=== PATIENT | male | born 1980 | race Caucasian/White ===

== ENCOUNTER 2020-02-15 17:09 | Emergency (ER) | payer MEDICARE, MEDICAID, SELFPAY ==
[2020-02-15 17:16] VITALS: BP 131/91; BP 136/94; PULSE 100; PULSE 93; RESP 16; TEMP 36.8; O2SAT 97; BMI 31.6
--- NOTE | 2020-02-15 17:18 | ED_ITS ---
HPI - Psych General Chief Complaint: ETOH/Substance Use Stated Complaint: anxiety Time Seen by Provider: 02/15/20 17:17 Source: patient and EMS Mode of arrival: EMS Limitations: no limitations History of Present Illness MD complaint: anxiety and alcohol abuse Onset (ago): week(s) (1) Duration: constant History of same: Yes Relieving factors: none Exacerbating factors: none Context: recent alcohol abuse and significant life stressor Associated psychiatric symptoms: depression Associated symptoms: denies other symptoms Treatments prior to arrival: none Related Data Home Medications Medication Instructions Recorded Confirmed buprenorphine-naloxone [Suboxone] 1 film BUCCAL DAILY 02/15/20 02/15/20 clonidine HCl 0.2 mg PO BID 02/15/20 02/15/20 gabapentin 600 mg PO TID 02/15/20 02/15/20 Allergies Allergy/AdvReac Type Severity Reaction Status Date / Time No Known Allergies Allergy Verified 02/15/20 17:20 [No Known Allergies*] Review of Systems Review of Systems: Constitutional : No Fever, No Chills ENT/Mouth : No Ear Pain, No Nasal Congestion, No sore throat Eyes: No Eye Pain, No Swelling, No Redness Cardiovascular : No Chest Pain, No SOB Respiratory : No Cough, No Sputum, No Dyspnea Gastrointestinal : No Nausea, No Vomiting, No Diarrhea, No Hematochezia, No Melena Genitourinary : No Dysuria, No Urinary Frequency, No Hematuria Musculoskeletal : No Myalgias Skin : No Skin Lesions, No rash Neuro : No Weakness, No Numbness, No Paresthesias, No Dizziness, No Headache Psych : positive Anxiety, positive Depression, no SI/HI Heme/Lymph: No Lymphadenopathy Endocrine : No Polyuria, No Polydipsia All other systems reviewed and are negative [facility] Past Medical History Attestation statement: The following information was validated with the patient. Medical History Alcohol abuse HTN (hypertension) Substance abuse Withdrawal seizures Social History Social History (Updated 02/15/20 @ 17:35 by Eileen Pepe DO) Alcohol intake: current Smoking Status: Current every day smoker Advance Directives: No Advance Directives Information Provided: Yes Physical Exam Vital Signs: Vital Signs: Last Vital Signs Temp 98.3 F 02/15/20 17:16 Pulse 100 02/15/20 17:16 Resp 16 02/15/20 17:16 BP 136/94 H 02/15/20 17:16 Pulse Ox 97 02/15/20 17:16 Body Mass Index 31.6 Appearance: Alert. Oriented X3. No acute distress. ETOH odor, slurred speech, mild anxiety Eyes: Pupils equal, round and reactive to light. ENT: Pharynx normal. Neck: Normal inspection. Neck supple. CVS: Normal heart rate and rhythm. Pulses normal. Respiratory: No respiratory distress. Breath sounds normal. Abdomen: Soft and nontender. Skin: Skin warm and dry. Normal skin color. Normal skin turgor. Extremities: No lower extremity edema. No calf ttp Neuro: Oriented X 3. No motor deficit. No sensory deficit. Course Course Course Narrative: has bed available for detox MDM - Psych MDM Narrative Medical decision making narrative: 39 yo male with hx of ETOH here with c/o wanting detox but also states that he could have a withdrawal seizure, initially reluctant to say what he needed help with - but now reports wants detox, will obtain labs, refer to recovery coaches, PO librium Discharge Plan Discharge Clinical Impression: Alcoholic intoxication Patient Disposition: Home, Self-Care Instructions: Abuse of Alcohol (ED) Additional Instructions: return to ED for any worsening symptoms or concerns Prescriptions: No Action gabapentin 600 mg Tablet 600 mg PO TID RF: 0 clonidine HCl 0.2 mg Tablet 0.2 mg PO BID RF: 0 buprenorphine-naloxone [Suboxone] 8-2 mg Film 1 film BUCCAL DAILY RF: 0 Referrals: Physician,Unknown [Primary Care Provider] - 2 days (as needed)
[2020-02-15] MEDS: chlordiazePOXIDE HCl 25 MG CAPSULE PO (17:29)
--- NOTE | 2020-02-15 18:02 | MHC.CARE ---
Addendum entered by Lisette Salazar LCSW 02/15/20 19:23: [facility] unable to accommodate an admission until 2am. [facility] was contacted, admission scheduled for 12am and phone intake was completed. Pt's father will roller picker pt from ED at 10pm. Original Note: Pt seeking detox. This database report writer contacted [facility] re: bed availability. Facility has an appropriate bed, pt directed to call and complete a phone intake. strength and conditioning coach assisting pt with this process.
[2020-02-15 18:25] LABS: PLT CLUMP 1; SCAN SMEAR FLAG 1
[2020-02-15 18:27] LABS: Basophils Percent Auto 0.4 % (0-2); Eosinophils Percent Auto 0.1 % (0-4); Hematocrit 50.4 % (42-52); Imm Gran Abs Auto 0.03 X10*3/uL (0.00-0.03); Imm Gran Pct Auto 0.3 % (0.0-0.4); Lymphocytes Absolute Auto 2.4 X10*3/uL (1.2-4.9); Lymphocytes Percent Auto 22.3 % (20-40); MANUAL DIFF FLAG NO; Mean Corpuscular HGB Conc 33.7 g/dl (31.0-36.0); Mean Corpuscular Hemoglobin 30.4 pg (27.0-33.0); Mean Corpuscular Volume 90.2 fL (80-98); Mean Platelet Volume 9.4 fL (9.4-12.4); Monocytes Percent Auto 9.5 % (2-11); Neutrophils Absolute Auto 7.3 X10*3/uL (2.0-8.3); Neutrophils Percent Auto 67.4 % (45-73); Red Blood Count 5.59 X10*6/uL (4.60-5.80); Red Cell Distribution Width 14.7 % (11.0-16.0); White Blood Count 10.9 X10*3/uL (4.8-10.8)
[2020-02-15 18:52] LABS: Ethanol 286 mg/dL
[2020-02-15 18:55] LABS: Anion Gap 19 (12-20); Blood Urea Nitrogen 9 mg/dL (9-16); Calcium 8.4 mg/dL (8.4-10.2); Carbon Dioxide 26 mmol/L (22-29); Chloride 103 mmol/L (96-108); Creatinine Clr Calc Pharmacy 162.9; Estimated Glomerular Filt Rate > 60; Glucose Random 99 mg/dL (60-115); Magnesium 2.1 mg/dL (1.6-2.6); Potassium 4.4 mmol/l (3.3-5.1); Sodium 144 mmol/L (135-145)
[2020-02-15 20:00] VITALS: BP 174/89; PULSE 97; RESP 18; TEMP 36.6; O2SAT 98
[2020-02-15 21:52] VITALS: BP 139/95; PULSE 94; RESP 18; TEMP 36.4; O2SAT 98
== END 2020-02-15 22:00 | disposition home or self-care (01) ==
PROVIDERS: Emergency Provider Emergency Medicine
DX: F10.129 Alcohol abuse with intoxication, unspecified (principal); Y90.9 Presence of alcohol in blood, level not specified; F33.1 Major depressive disorder, recurrent, moderate; F41.1 Generalized anxiety disorder; F43.0 Acute stress reaction; Z79.899 Other long term (current) drug therapy; F17.200 Nicotine dependence, unspecified, uncomplicated; Z71.6 Tobacco abuse counseling
CPT/HCPCS: 36415; 80048; 80320; 83735; 85025; 99284

== ENCOUNTER 2020-07-29 16:54 | Inpatient (IN) | payer MEDICARE, MEDICAID, SELFPAY ==
--- NOTE | ~2020-07-29 | XR_ITS ---
EXAMINATION: XR CHEST CLINICAL INFORMATION: Atrial fibrillation COMPARISON: Previous chest x-ray December 2018 TECHNIQUE: Frontal view of the chest was obtained. FINDINGS: The cardiac and mediastinal contours are stable. There are postsurgical changes to the left upper lobe. There are bullous changes seen in the right upper lobe. The lungs are clear. There is no pleural effusion or pneumothorax. There is ossification of the left coracoclavicular ligament likely related to old trauma. XR/XR chest 1V IMPRESSION: No evidence for acute disease in the chest.
[2020-07-29 17:04] VITALS: BP 139/90; BP 162/88; PULSE 106; PULSE 110; RESP 20; TEMP 35.8; O2SAT 94; O2SAT 96; BMI 34.2
--- NOTE | 2020-07-29 17:19 | ED.ALCOHOL ---
HPI - Alcohol General Chief Complaint: ETOH/Substance Use Stated Complaint: ETOH/psychiatric Time Seen by Provider: 07/29/20 17:05 Source: EMS Mode of arrival: EMS Limitations: other (Intoxicated) History of Present Illness HPI narrative: Patient comes to emergency room by ambulance. EMS reports that somebody called to nut picker the patient in a hotel. His room was full of Related Data Home Medications Medication Instructions Recorded Confirmed buprenorphine-naloxone [Suboxone] 1 film BUCCAL DAILY 02/15/20 02/15/20 clonidine HCl 0.2 mg PO BID 02/15/20 02/15/20 gabapentin 600 mg PO TID 02/15/20 02/15/20 Allergies Allergy/AdvReac Type Severity Reaction Status Date / Time No Known Allergies Allergy Verified 07/29/20 20:19 [No Known Allergies*] [facility] Past Medical History Medical History Alcohol abuse HTN (hypertension) Substance abuse Withdrawal seizures Social History Social History (Updated 02/15/20 @ 17:35 by Eileen Pepe DO) Alcohol intake: current Alcohol intake frequency: 3 or more drinks per day Alcohol type: hard liquor Smoking Status: Current every day smoker Use of substances other than those prescribed or required for medical reasons: Yes Substance Use Type: Former Substance User and Opiates Advance Directives: No Advance Directives Information Provided: Yes Physical Exam Vital Signs: Vital Signs: Last Vital Signs Temp 96.4 F L 07/29/20 17:04 Pulse 109 H 07/29/20 20:11 Resp 16 07/29/20 20:11 BP 184/90 H 07/29/20 20:11 Pulse Ox 96 07/29/20 20:11 Body Mass Index 34.2 Course Course Course Narrative: Patient is now more awake, states that he has been hearing voices telling him to drink more and kill himself. Behavioral health network consult pending Discharge Plan Discharge Prescriptions: No Action gabapentin 600 mg Tablet 600 mg PO TID RF: 0 clonidine HCl 0.2 mg Tablet 0.2 mg PO BID RF: 0 buprenorphine-naloxone [Suboxone] 8-2 mg Film 1 film BUCCAL DAILY RF: 0
--- NOTE | 2020-07-29 18:02 | MHC.RECOVSUP ---
Recovery Support note: Patient is a 39 year old Cameroonian speaking male who presented to [facility] via EMS due to withdrawal and being unable to care for self. This headline writer met with patient to discuss the circumstances that lead up to his ED visit. Patient was minimally engaged in consultation and provided short answers. Patient reports he was on Suboxone for several years and decided he wanted to get off of it. Patient reports he stopped taking it with no attempt to taper. Patient began to withdraw and started to drink alcohol to cope with the withdrawal symptoms. Patient reports he is here in the hospital because he is unable to handle the withdrawal symptoms. Patient reports he gets his Suboxone from [facility] and that he was on 16mg. Patient is open to receiving Suboxone to treat his withdrawal. Patient reports he does not have any more Suboxone at home. This headline writer asked patient if he would be willing to go to detox and patient stated he would only go to [facility]. [facility] reports they do have a male bed available as of 1800. Patient may be willing to discharge to the community if his withdrawal is managed. Patient is unable to provide specifics regarding what he feels would be best, patient states I need the hospital to help me but does not elaborate. Discussed case with patient's ED provider and CARE Team.
--- NOTE | 2020-07-29 18:48 | PC.NURSE ---
late entry for 1800. pt intoxicated, undressed and cleansed of urine while still in bed. able to follow commands and states needs but coordination is poor.
[2020-07-29 20:11] VITALS: BP 184/90; PULSE 109; RESP 16; O2SAT 96
--- NOTE | 2020-07-29 20:30 | PC.NURSE ---
At this time the patient reported that he is hearing voices to kill himself, patient reports that these are not new voices, but since taking the suboxone approx a week and a half ago because he wanted to stop taking it the voices tell him to drink more to kill himself. Patient also has not taken his clonidine or gabapentin, CIWA of 11, M is aware o
[2020-07-29 20:35] VITALS: BP 184/90; PULSE 109
[2020-07-29] MEDS: cloNIDine HCL 0.2 MG TABLET PO (20:35)
[2020-07-29] MEDS: LORazepam 1 MG TABLET 2 MG PO (20:35)
[2020-07-29 21:01] LABS: IDNOW Serial# 9DD0AD1C
[2020-07-29 21:05] LABS: COVID-19 Test Negative (Negative)
[2020-07-30] VITALS (26 sets, daily range): BP systolic 103–142; BP diastolic 56–83; PULSE 63–168; RESP 20–34; TEMP 36.6–37.2; O2SAT 92–98; BMI 38.1; BMI 38.0
[2020-07-30 00:01] LABS: Ethanol 318 mg/dL
[2020-07-30 01:24] LABS: Amphetamine Screen Urine Not Detected (Not Detect); Barbiturates, Urine Not Detected (Not Detect); Benzodiazepines Screen Urine Not Detected (Not Detect); Cannabinoid Screen Urine Not Detected (Not Detect); Cocaine Screen Urine Not Detected (Not Detect); Opiate Screen Urine Not Detected (Not Detect); Phencyclidine Screen Urine Not Detected (Not Detect)
[2020-07-30] MEDS: cloNIDine HCL 0.1 MG TABLET PO (02:10)
[2020-07-30] MEDS: chlordiazePOXIDE HCl 25 MG CAPSULE PO ×2 (04:18→07:49)
--- NOTE | 2020-07-30 07:07 | PC.NURSE ---
patient appears to be asleep at present patient appears in no distress, patient to be seen by [facility]N hopefully today. patients respirations are even and unlabored, sleeps in recliner.
[2020-07-30] MEDS: chlordiazePOXIDE HCl 25 MG CAPSULE 50 MG PO (09:44)
--- NOTE | 2020-07-30 10:44 | MHC.CARE ---
10:30 - Spoke with JOANIE regarding this pt. JOANIE advised the CARE team this morning that a clinician will be out to see this pt at 0745 this morning. A return call was placed at 10:30 regarding an ETA for a clinician as none have arrived yet. JOANIE advised CARE that they would be out some time after noon . Alignment Technician Harika was advised that CARE Team will be taking this case.
--- NOTE | 2020-07-30 10:47 | PC.NURSE ---
PT to be moved to main ED due to ETOH withdrawal symptoms. Report given to Tenzin KRISHNAMURTHY. Care team met with PT, plan for EATs Bedsearch.
[2020-07-30] MEDS: diphenhydrAMINE HCL 50 MG/ML VIAL IVPUSH ×2 (11:19→17:04)
[2020-07-30] MEDS: LORazepam 2 MG/ML VIAL IVPUSH ×2 (11:19→11:58)
[2020-07-30] MEDS: 0.9 % Sodium Chloride 1,000 ML 999 ML IVCONT ×2 (11:19)
--- NOTE | 2020-07-30 11:28 | MHC.RECOVSUP ---
? Reason for consult:Continuity of care o Current location: [address] o Identified substance use concern:ETOH - Withdrawal - Seeking ATS (detox) - Support ? Intervention: o Community resources provided o Harm reduction discussion ? Plan: o Follow up tomorrow o Patient awaiting crisis evaluation o Patient to follow up with [facility] after discharge ? Additional information:Pt. sleep. Pt. is a section 12.
--- NOTE | 2020-07-30 11:39 | PC.NURSE ---
medicated per emar, wctm for therapeutic effect.
--- NOTE | 2020-07-30 12:06 | ECG_ITS ---
Test Reason : ETOH Blood Pressure : / mmHG Vent. Rate : 163 BPM Atrial Rate : 159 BPM P-R Int : 000 ms QRS Dur : 088 ms QT Int : 284 ms P-R-T Axes : 000 041 037 degrees QTc Int : 467 ms Atrial fibrillation with rapid ventricular response Abnormal ECG When compared with ECG of 25-DEC-2018 21:20, Atrial fibrillation has replaced Sinus rhythm Referred By: Amarilys Pedraza Electronically Signed By:Scott Torres
[2020-07-30] MEDS: PHENobarbitaL sodium 130 MG/ML VIAL 320 MG IM (12:30)
[2020-07-30 12:32] LABS: Basophils Percent Auto 0.3 % (0-2); Eosinophils Percent Auto 0.3 % (0-4); MANUAL DIFF FLAG SCAN
[2020-07-30 12:34] LABS: Imm Gran Abs Auto 0.01 X10*3/uL (0.00-0.03); Imm Gran Pct Auto 0.2 % (0.0-0.4); Lymphocytes Absolute Auto 1.2 X10*3/uL (1.2-4.9); Lymphocytes Percent Auto 18.1 % (20-40); Mean Corpuscular HGB Conc 34.9 g/dl (31.0-36.0); Monocytes Absolute Auto 0.7 X10*3/uL (0.1-1.2); Monocytes Percent Auto 10.4 % (2-11); Neutrophils Absolute Auto 4.7 X10*3/uL (2.0-8.3); Neutrophils Percent Auto 70.7 % (45-73); Red Cell Distribution Width 14.4 % (11.0-16.0); White Blood Count 6.6 X10*3/uL (4.8-10.8)
[2020-07-30 12:36] LABS: Prothrombin Time 11.9 SEC (10.8-13.0)
[2020-07-30 12:38] LABS: Partial Thromboplastin Time 36.3 SEC (24.1-38.0)
[2020-07-30] MEDS: dilTIAZem HCL 50 MG/10 ML VIAL 10 MG IVPUSH ×4 (12:59→15:45)
[2020-07-30] MEDS: Magnesium Sulfate/H2O 2 GM/50 ML PIGGYBACK IV (13:00)
[2020-07-30 13:08] LABS: Platelet Count 79 X10*3/uL (160-400)
[2020-07-30 13:09] LABS: SLIDE REVIEW VERIFIED
[2020-07-30 13:25] LABS: Alanine Aminotransferase 100 U/L (0-40); Alkaline Phosphatase 145 U/L (39-117); Anion Gap 24 (12-20); Aspartate Amino Transferase 127 U/L (5-37); Bilirubin Total 1.3 mg/dL (0.0-1.0); Blood Urea Nitrogen 11 mg/dL (9-16); Calcium 9.2 mg/dL (8.4-10.2); Carbon Dioxide 21 mmol/L (22-29); Chloride 92 mmol/L (96-108); Creatinine Clr Calc Pharmacy 173.8; Estimated Glomerular Filt Rate > 60; Glucose Random 76 mg/dL (60-115); Magnesium 1.6 mg/dL (1.6-2.6); Potassium 3.3 mmol/L (3.3-5.1); Sodium 134 mmol/L (135-145)
[2020-07-30] MEDS: dilTIAZem HCL 125 MG in 0.9 % Sodium Chloride 100 ML 10 MG IVCONT (13:35)
--- NOTE | 2020-07-30 13:55 | PM.IMHP ---
History of Present Illness Date of Service: 07/30/20 Chief Complaint: hearing voices This is a 39 yo M with a PMH of alcohol abuse and dependence with prior alcohol withdrawal seizures who presents to the hospital by EMS for alcohol intoxication and auditory hallucinations. The patient was initially supposed to be a section 12 and was a bed search, but he began exhibiting symptoms of alcohol withdrawal and so he was transferred from the pod over to the main ED. The patient himself denies any current auditory hallucinations, but reports that he has been feeling depressed and has been drinking a half gallon of vodka daily for many days now. He reports that the voices told him to drink more alcohol so he could end his life. Upon arrival to the ED, he was hemodynmically stable but at some point this AM, he began exhibiting alcohol withdrawal symptoms and tachycardia. He was given multiple IV / oral benzodiazepines without much improvement and so the decision was made to start him on phenobarbital per protocol. He was found to be in A. Fib with RVR, with rates going up the 150-160s range. He was given IV cardizem without much improvement and subsequently started on IV cardizem wih rates slowly down to the 130s. Due to his severe alcohol withdrawal and A. Fib with RVR -- he will be admitted to the medical floor for further management. He will ultimately need CARE team / N re-eval once he is medically cleared. Review of Systems Review of Systems: General - reports alcohol withdrawal symptoms HEENT -denies blurred vision, denies headache, denies sore throat Cardiovascular - denies chest pain, reports palpitations Respiratory - denies shortness of breath, coughing, wheezing Gastrointestinal - denies abdominal pain, nausea, vomiting, diarrhea - denies flank pain, denies dysuria, denies frequency or urgency Musculoskeletal - denies back pain, denies hip pain, denies knee pain, denies shoulder pain Neurological - reports tremors Skin, denies any bruising or redness Psychiatric - Auditory hallucinations which have subsided at this time, reports depression, reports SI (intent with heavy alcohol use), reports tremors Endocrinology - denies intolerance to hot / cold temperatures [facility] Medical History Alcohol abuse HTN (hypertension) Substance abuse Withdrawal seizures Family History (Updated 05/10/21 @ 14:03 by Adama Springer MD) Other Alcoholism Social History (Updated 02/15/20 @ 17:35 by Eileen Pepe DO) Alcohol intake: current Alcohol intake frequency: 3 or more drinks per day Alcohol type: hard liquor Smoking Status: Current every day smoker Use of substances other than those prescribed or required for medical reasons: Yes Substance Use Type: Former Substance User and Opiates Advance Directives: No Advance Directives Information Provided: Yes Meds Allergies Allergy/AdvReac Type Severity Reaction Status Date / Time No Known Allergies Allergy Verified 07/29/20 20:19 [No Known Allergies*] Active Medications: Current Medications Generic Name Dose Route Start Last Admin Trade Name Freq PRN Reason Stop Dose Admin Chlordiazepoxide HCl 25 mg 07/30/20 07:32 07/30/20 07:49 Chlordiazepoxide Hcl 25 Mg Capsule PO 25 mg Q4H PRN Administration Alcohol Withdrawal Magnesium Sulfate 2 gm in 50 mls @ 25 mls/hr 07/30/20 12:50 07/30/20 13:00 IV 07/30/20 14:49 25 mls/hr ONCE ONE Administration Diltiazem HCl 125 mg/ Sodium 125 mls @ 0 mls/hr 07/30/20 13:00 07/30/20 13:35 Chloride IVCONT 10 mg/hr .Q0M ANNMARIE 10 mls/hr Administration Protocol Per Protocol Medication 1 each 07/31/20 09:00 No Benzodiazepines MISCELLANE DAILY [facility] Pharmacy Consult 1 each 07/30/20 12:06 Consult Rx Perform Med Rec MISCELLANE ONCE PRN Consult order Phenobarbital 60 mg 07/30/20 21:00 Phenobarbital 30 Mg Tablet PO 08/01/20 09:01 BID [facility] Protocol Phenobarbital 30 mg 08/01/20 21:00 Phenobarbital 30 Mg Tablet PO 08/03/20 09:01 BID [facility] Protocol Phenobarbital 30 mg 08/04/20 09:00 Phenobarbital 30 Mg Tablet PO 08/05/20 09:01 DAILY [facility] Protocol Phenobarbital Sodium 240 mg 07/30/20 15:30 Phenobarbital Sodium 130 Mg/Ml Vial IM 07/30/20 18:31 Q3H [facility] Protocol Home Medications Medication Instructions Recorded Confirmed Last Taken Type buprenorphine-naloxone [Suboxone] 2 film BUCCAL DAILY 02/15/20 07/30/20 Unknown History clonidine HCl 0.2 mg PO BID 02/15/20 07/30/20 07/18/20 10:00 History gabapentin 600 mg PO TID 02/15/20 07/30/20 07/18/20 History atorvastatin 20 mg PO BEDTIME 07/30/20 07/30/20 Unknown History bupropion HCl 300 mg PO QAM 07/30/20 07/30/20 Unknown History cholecalciferol (vitamin D3) 50 mcg PO DAILY 07/30/20 07/30/20 Unknown History metoprolol succinate 25 mg PO DAILY 07/30/20 07/30/20 Unknown History omeprazole 20 mg PO DAILY PRN 07/30/20 07/30/20 Unknown History sertraline [Zoloft] 150 mg PO DAILY 07/30/20 07/30/20 Unknown History vitamin B complex 1 tab PO DAILY 07/30/20 07/30/20 Unknown History Physical Exam Vital Signs and Narrative: Vital Signs: Last Vital Signs Temp 98.3 F 07/30/20 09:41 Pulse 168 H 07/30/20 13:38 Resp 28 H 07/30/20 13:38 BP 103/60 07/30/20 13:38 Pulse Ox 98 07/30/20 13:38 Body Mass Index 34.2 Const: Other: Constitutional - in distress, appears to be withdrawing, some what unkempt Eyes - PERRLA, EOMI Cardiovascular - IRR, tachycardic to the 150-160s range Respiratory - diminished, mild respiratory distress, tachypnea up to mid 20s Gastrointestinal - NT / ND; +BS; No rebound or guarding - No CVA tenderness Extremities - no calf tenderness bilaterally, no swelling Musculoskeletal - Normal inspection, normal ROM Skin - Warm/Dry Neurological - Alert & oriented x3, No focal deficit; +tremors Psychological - Appropriate affect Results Labs CBC and Chem 7: 07/30/20 12:21 07/30/20 12:21 Labs: Laboratory Results - last 24 hr 07/29/20 07/29/20 07/30/20 20:46 23:34 01:06 MCV MCH MCHC RDW Plt Count MPV Immature Gran % (Auto) Neut % (Auto) Lymph % (Auto) [place] % (Auto) Eos % (Auto) Baso % (Auto) Lymph # (Auto) [place] # (Auto) Eos # (Auto) Baso # (Auto) Abs Immat Gran (auto) Absolute Neuts (auto) Absolute Nucleated RBC Nucleated RBC % (auto) Smear Tech's Comments Hold Purple Top PT INR APTT Anion Gap Estim Creat Clear Calc Estimated GFR Random Glucose Calcium Magnesium Total Bilirubin AST ALT Alkaline Phosphatase Total Protein Albumin Urine Opiates Screen Not Detected Ur Barbiturates Screen Not Detected Ur Phencyclidine Scrn Not Detected Ur Amphetamines Screen Not Detected U Benzodiazepines Scrn Not Detected Urine Cocaine Screen Not Detected U Marijuana (THC) Screen Not Detected Ethyl Alcohol 318 H* COVID-19 (CHARAN) Negative COVID-Zoe Majeste See Note 07/30/20 07/30/20 07/30/20 12:21 12:21 12:21 MCV 86.0 MCH 30.0 MCHC 34.9 RDW 14.4 Plt Count 79 L MPV 10.0 Immature Gran % (Auto) 0.2 Neut % (Auto) 70.7 Lymph % (Auto) 18.1 L [place] % (Auto) 10.4 Eos % (Auto) 0.3 Baso % (Auto) 0.3 Lymph # (Auto) 1.2 [place] # (Auto) 0.7 Eos # (Auto) 0.0 Baso # (Auto) 0.0 Abs Immat Gran (auto) 0.01 Absolute Neuts (auto) 4.7 Absolute Nucleated RBC 0.000 Nucleated RBC % (auto) 0.0 Smear Tech's Comments VERIFIED Hold Purple Top SEE NOTE PT 11.9 INR 1.0 APTT 36.3 Anion Gap Estim Creat Clear Calc Estimated GFR Random Glucose Calcium Magnesium Total Bilirubin AST ALT Alkaline Phosphatase Total Protein Albumin Urine Opiates Screen Ur Barbiturates Screen Ur Phencyclidine Scrn Ur Amphetamines Screen U Benzodiazepines Scrn Urine Cocaine Screen U Marijuana (THC) Screen Ethyl Alcohol COVID-19 (CHARAN) COVID-Zoe Majeste 07/30/20 12:21 MCV MCH MCHC RDW Plt Count MPV Immature Gran % (Auto) Neut % (Auto) Lymph % (Auto) [place] % (Auto) Eos % (Auto) Baso % (Auto) Lymph # (Auto) [place] # (Auto) Eos # (Auto) Baso # (Auto) Abs Immat Gran (auto) Absolute Neuts (auto) Absolute Nucleated RBC Nucleated RBC % (auto) Smear Tech's Comments Hold Purple Top PT INR APTT Anion Gap 24 H Estim Creat Clear Calc 173.8 Estimated GFR > 60 Random Glucose 76 Calcium 9.2 D Magnesium 1.6 Total Bilirubin 1.3 H AST 127 H ALT 100 H Alkaline Phosphatase 145 H Total Protein 7.0 Albumin 4.0 Urine Opiates Screen Ur Barbiturates Screen Ur Phencyclidine Scrn Ur Amphetamines Screen U Benzodiazepines Scrn Urine Cocaine Screen U Marijuana (THC) Screen Ethyl Alcohol COVID-19 (CHARAN) COVID-19 Clin Com Assessment and Plan (1) Alcohol withdrawal syndrome: Status: Acute This is a 39 yo M with a PMH of alcohol abuse and dependence, with prior withdrawal seizures who presented to the hospital with depression and complaints of auditory hallucinations telling him to harm himself by drinking excessive alcohol. He was initially a section 12 and psych bed search, but he began exhibiting signs and symptoms of alcohol withdrawal and as such will be medically admitted for acute alcohol withdrawal. 1. Acute Alcohol Withdrawal presented with a EtOH level >300 now in withdrawal -- did not responded to IV ativan and oral librium, started on phenobarb per protocol. Continue per protocol, may require further doses monitor and replete electrolytes as necessary 2. A. Fib with RVR likely secondary to alcohol withdrawal does not appear to be in HF clinically at this time will check a chest XR and BNP continue cardizem gtt per protocol may need echo and cardiology evaluation 3. Elevated LFTs due to alcohol abuse monitor alcohol cessation as been strongly encouraged 4. Auditory hallucinations, SI reports none at this time 1:1 / SI precautions will need BHN re-evaluation 5. Thrombocytoepnia due to alcohol intake monitor, no signs of bleeding at this time Full Code DVT pptx, mechanical due to thrombocytopenia
--- NOTE | 2020-07-30 13:59 | PC.NURSE ---
Pt incont of urine, heavy perspiration- bedding and clothing changed. Pt HR sustaining in 130s-155s.Hsopitalist at bedside, both and Bunny Panda aware of pts vs. pending admissiob
[2020-07-30 14:49] LABS: B Type Natriuretic Peptide 91 pg/mL (<100)
[2020-07-30] MEDS: PHENobarbitaL sodium 130 MG/ML VIAL 240 MG IM (15:35)
[2020-07-30] MEDS: Metoprolol Tartrate 5 MG/5 ML VIAL 2.5 MG IVPUSH (15:58)
[2020-07-30] MEDS: Metoprolol Tartrate 5 MG/5 ML VIAL IVPUSH (16:42)
--- NOTE | 2020-07-30 17:05 | PC.NURSE ---
ATTEMPTS AT CONTROLLING PTS HR HAVE BEEN CHALLENGING, PT HAS HAD MULTIPLE ROUNDS OF CARDIZEM BOLUS, ON HIGHEST TITRATION OF CARDIZEM DRIP. PRESSURES REMAIN STABLE, PT HR HAS NOT GONE BELOW 120 BPM THROUGHOUT DAY. PT HAS HAD INCREASED RESTLESSNESS THROUGHOUT AFTERNOON, SPEECH IS BECOMING MORE JUMBLED. PT IS HAVING VERY SHORT PERIODS OF REST, THEN APPEARING AGITATED AND RESTLESS. PT HAD ONE EPISODE OF ATTEMPTING TO AMBULATE W/O ASSISTANCE, APPEARS TO HAVE RIPPED OUT 1/2 IVS, BLEEDING CONTROLLED. REDIRECTED BACK TO BED, ED PROVIDER AND HOSPITALIST AT BEDSIDE. PLAN TO GET PTS HR AND BEHAVIORS UNDER CONTROL. ICU AWARE OF PT STATUS, HOSPITALIST TEAM WILL COME TO [facility] PRIOR TO 1900 TO ASSESS APPROPRIATENESS FOR ROUTINE INPT ADMISSION. WCTM.
--- NOTE | 2020-07-30 19:27 | W.PM.CCCN ---
History of Present Illness Data of Consult Service Date: 07/30/20 Primary Care Provider: Unknown Physician HPI Reason for consult: ETOH withdrawal This is a 39 year old male with a past medical history of alcohol withdrawal seizures, polysubstance abuse, and hypertension presented to the ED via EMS for alcohol intoxication and auditory hallucinations. The patient was initially supposed to be a section 12 and was a bed search, but he began exhibiting symptoms of alcohol withdrawal. He was initially hemodynamically stable, but he began exhibiting alcohol withdrawal symptoms and tachycardia. He was given multiple IV / oral benzodiazepines without much improvement and so the decision was made to start him on phenobarbital per protocol. He was found to be in A. Fib with RVR, with rates going up the 150-160s range. He was given IV cardizem without much improvement and subsequently started on IV cardizem wih rates slowly down to the 130s. He continue to require multiple medications for alcohol withdrawal symptoms. Subsequently requiring Precedex drip and admission into the ICU. Review of Systems Review of Systems: Unable to perform, patient is confused Neurologic: Reports confusion (Periods of confusion) Psychiatric: Psychiatric: Reports confusion (Periods of confusion) [facility] Past Medical History Medical History Alcohol abuse HTN (hypertension) Substance abuse Withdrawal seizures Family History Family History (Updated 07/30/20 @ 14:03 by Adama Springer MD) Other Alcoholism Social History Social History (Updated 02/15/20 @ 17:35 by Eileen Pepe DO) Alcohol intake: current Alcohol intake frequency: 3 or more drinks per day Alcohol type: hard liquor Smoking Status: Current every day smoker Use of substances other than those prescribed or required for medical reasons: Yes Substance Use Type: Former Substance User and Opiates Advance Directives: No Advance Directives Information Provided: Yes Healthcare Proxy: No Guardian: No Meds Allergies Allergy/AdvReac Type Severity Reaction Status Date / Time No Known Allergies Allergy Verified 07/29/20 20:19 [No Known Allergies*] Active Medications: Current Medications Generic Name Dose Route Start Last Admin Trade Name Freq PRN Reason Stop Dose Admin Diltiazem HCl 125 mg/ Sodium 125 mls @ 0 mls/hr 07/30/20 13:00 07/30/20 15:25 Chloride IVCONT 15 mg/hr .Q0M ANNMARIE 15 mls/hr Titration Protocol Per Protocol Dexmedetomidine HCl 400 mcg in 100 mls @ 0 mls/hr 07/30/20 18:45 Precedex IVCONT .Q0M [facility] Protocol Per Protocol Medication 1 each 07/31/20 09:00 No Benzodiazepines MISCELLANE DAILY [facility] Pharmacy Consult 1 each 07/30/20 12:06 Consult Rx Perform Med Rec MISCELLANE ONCE PRN Consult order Phenobarbital 60 mg 07/30/20 21:00 Phenobarbital 30 Mg Tablet PO 08/01/20 09:01 BID [facility] Protocol Phenobarbital 30 mg 08/01/20 21:00 Phenobarbital 30 Mg Tablet PO 08/03/20 09:01 BID [facility] Protocol Phenobarbital 30 mg 08/04/20 09:00 Phenobarbital 30 Mg Tablet PO 08/05/20 09:01 DAILY [facility] Protocol Home Medications Medication Instructions Recorded Confirmed Last Taken Type buprenorphine-naloxone [Suboxone] 2 film BUCCAL DAILY 02/15/20 07/30/20 Unknown History clonidine HCl 0.2 mg PO BID 02/15/20 07/30/20 07/18/20 10:00 History gabapentin 600 mg PO TID 02/15/20 07/30/20 07/18/20 History atorvastatin 20 mg PO BEDTIME 07/30/20 07/30/20 Unknown History bupropion HCl 300 mg PO QAM 07/30/20 07/30/20 Unknown History cholecalciferol (vitamin D3) 50 mcg PO DAILY 07/30/20 07/30/20 Unknown History metoprolol succinate 25 mg PO DAILY 07/30/20 07/30/20 Unknown History omeprazole 20 mg PO DAILY PRN 07/30/20 07/30/20 Unknown History sertraline [Zoloft] 150 mg PO DAILY 07/30/20 07/30/20 Unknown History vitamin B complex 1 tab PO DAILY 07/30/20 07/30/20 Unknown History Physical Exam Vital Signs: Vital Signs: Last Vital Signs Temp 98.1 F 07/30/20 17:43 Pulse 129 H 07/30/20 17:43 Resp 21 H 07/30/20 17:43 BP 142/64 H 07/30/20 17:43 Pulse Ox 93 07/30/20 17:43 Body Mass Index 34.2 Const: General: no acute distress, anxious, confusion (Periods of confusion) and diaphoretic Orientation/consciousness: patient oriented x3 and confusion (Periods of confusion) Eyes: General: appearance normal, both eyes and all related structures Neck: Neck: Yes supple and Yes no JVD Resp: Effort & Inspection: normal respiratory effort and tachypneic Auscultation: clear to auscultation bilaterally Cardio: Other: Atrial fibrillation Rate: tachycardic Heart sounds: S1 normal heart sound present and S2 normal heart sound present Peripheral pulses: Peripheral pulses 2+ throughout GI: Palpation (GI): Soft to palpation Skin: General skin exam: turgor normal Rashes: no rashes Neuro: General: patient oriented x3 and confusion (Periods of confusion) Extrem: General: Yes capillary refill normal Results Labs CBC & Chem 7: 07/30/20 12:21 07/30/20 12:21 Labs: Short CBC 07/30/20 Range/Units 12:21 WBC 6.6 (4.8-10.8) X10*3/uL Hgb 15.0 (14.0-18.0) g/dl Hct 43.0 (42-52) % Plt Count 79 L (160-400) X10*3/uL BMP 07/30/20 12:21 Sodium 134 L Potassium 3.3 Chloride 92 L Carbon Dioxide 21 L BUN 11 Creatinine 0.76 Calcium 9.2 D Liver Function 07/30/20 Range/Units 12:21 Total Bilirubin 1.3 H (0.0-1.0) mg/dL AST 127 H (5-37) U/L ALT 100 H (0-40) U/L Alkaline Phosphatase 145 H (39-117) U/L Albumin 4.0 (3.5-5.0) g/dL Assessment and Plan (1) Alcoholic intoxication: Status: Acute Plan: Neuro: Hallucinations: Auditory hallucinations/SI: 1:1 / SI precautions will need BHN re-evaluation presented with a EtOH level >300, did not responded to IV ativan, oral librium, and phenobarb per protocol. Will now start on precedex drip. wean off prexedex drip when appropiate Cardiac: New onset AFib RVR: Likely from ETOH withdrawal. Cardiology consult in the morning/echo. Wean off Cardizem drip as tolerated Tachycardia: Likely from ETOH withdrawal. Pulmonary: No acute issues Renal: No acute issues Endo: No acute issues. GI: Elevated LFTs: due to alcohol abuse. Cont monitor lfts Heme/Onc: Thrombocytoepnia due to alcohol intake monitor, no signs of bleeding at this time Psych: SI: Denies SI at time of assesment. Cont to be 1:1. Needs CARE team / BHN re-eval once he is medically cleared. Miscellaneous: Prophylaxis: mechanical due to thrombocytopenia Critical care time: x 60 min CODE: Full code (2) Alcohol withdrawal syndrome: Status: Acute (3) Afib: Status: Acute (4) Elevated LFTs: Status: Acute
--- NOTE | 2020-07-30 19:31 | PC.NURSE ---
This RN contacted pharmacy regarding Precedex drip. Medication unavailable in pyxis. Medication to be administered/initiated in ED prior to transfer to ICU. Sitter remains at bedside.
[2020-07-30] MEDS: dexmedeTOMIDidine HCL/NS 400 MCG/100 ML INFUS..BTL 29.48 MCG IVCONT (19:42)
[2020-07-30] MEDS: dexmedeTOMIDidine HCL/NS 400 MCG/100 ML INFUS..BTL 49.2 MCG IVCONT ×2 (21:13→23:25)
[2020-07-30] MEDS: Lactated Ringers 1,000 ML 125 ML IVCONT (21:28)
--- NOTE | 2020-07-30 21:39 | PC.NURSE ---
Addendum entered by Huber Morton RN 07/30/20 22:56: Unable to assess CIWA r/t patient unable to answer questions - sedated. Wakeful periods, startles, opens eyes, makes eye contact, but relaxes and falls back asleep without issue. Addendum entered by Huber Morton RN 07/30/20 22:30: Labs drawn & fluids changed in response. Kphos ordered as well. Patient intermit restless - able to be redirected at this time. HR 60's, AFIB still. Original Note: Admitted patient to ICU room 252 @ approx 2100. Patient arousable, but not making sense, garbled speech, mumbling when responding. Following simple directions. HR down to high 50's, low 60's, afib, titrated cardizem drip off - Karyn KNITTING MACHINE OPERATOR HELPER at bedside - aware of titrations. Patient asleep, snoring, applied sequentials for DVT prophylaxis, also applied EtCO2 monitoring via nasal cannula (2 liters applied) r/t mouth breathing and sedated w/ precedex. Seizure precautions put in place - padded bedrails. Sitter at bedside for safety and SI precautions.
[2020-07-30 21:57] LABS: Blood Urea Nitrogen 11 mg/dL (9-16); Creatinine Clr Calc Pharmacy 185.6; Estimated Glomerular Filt Rate > 60; Glucose Random 99 mg/dL (60-115)
[2020-07-30 22:10] LABS: Anion Gap 18 (12-20); Calcium 8.3 mg/dL (8.4-10.2); Carbon Dioxide 23 mmol/L (22-29); Chloride 95 mmol/L (96-108); Magnesium 1.9 mg/dL (1.6-2.6); Phosphorus 1.6 mg/dL (2.7-4.5); Potassium 3.2 mmol/L (3.3-5.1); Sodium 133 mmol/L (135-145)
[2020-07-30] MEDS: 0.9 % Sodium Chloride 1,000 ML 100 ML IVCONT (22:26)
[2020-07-30] MEDS: Potassium Phosphate 30 MMOL in 0.9 % Sodium Chloride 500 ML 85 MMOL IV (22:38)
[2020-07-31] VITALS (28 sets, daily range): BP systolic 126–184; BP diastolic 79–107; PULSE 60–86; RESP 13–35; TEMP 36.2–36.7; O2SAT 92–96
[2020-07-31] MEDS: dexmedeTOMIDidine HCL/NS 400 MCG/100 ML INFUS..BTL 49.2 MCG IVCONT ×5 (01:25→22:04)
--- NOTE | 2020-07-31 01:40 | PC.NURSE ---
CARE ASSUMED 23;15...PRECEDEX 1.5 MCG/KG/HR (49.2 CC/HR)...SEDATE...INTERMITTANTLY AWAKE/RESTLESS...WEAKLY BLANKENSHIP..MUMBLES INCOHERANTLY..DOES NOT FOLLOW COMMANDS....NS 0.9% 100 CC/HR...K-PO4 INFUSING...BP STABLE...ATRIAL FIB HR 60'S-70'S...CARDIZEM DRIP REMAINS OFF...HNV SINCE ARRIVAL/ADMIT TO ICU...BLADDER SCANNED 202ml...ICU PROVIDER PRESENT AND AWARE...[place] CATHETER APPLIED...TO MONITOR RESPONSE...AM LAB-WORK ORDERED...1:1 SITTER AT BEDSIDE
[2020-07-31 05:28] LABS: Basophils Percent Auto 0.2 % (0-2); Eosinophils Absolute Auto 0.1 X10*3/uL (0.0-0.4); Hemoglobin 13.2 g/dl (14.0-18.0); PLT CLUMP 1; SCAN SMEAR FLAG 1
[2020-07-31 05:29] LABS: VBG Base Excess 1.4 mmol/L; VBG HCO3 22 mmol/L (22-26); VBG pCO2 27 mmHg; VBG pH 7.53 (7.32-7.43); VBG pO2 77 mmHg
[2020-07-31 05:30] LABS: Hematocrit 37.5 % (42-52); Imm Gran Abs Auto 0.01 X10*3/uL (0.00-0.03); Imm Gran Pct Auto 0.2 % (0.0-0.4); Lymphocytes Absolute Auto 1.4 X10*3/uL (1.2-4.9); Lymphocytes Percent Auto 27.6 % (20-40); Mean Corpuscular HGB Conc 35.2 g/dl (31.0-36.0); Mean Corpuscular Hemoglobin 30.3 pg (27.0-33.0); Mean Corpuscular Volume 86.2 fL (80-98); Mean Platelet Volume 10.1 fL (9.4-12.4); Monocytes Absolute Auto 0.6 X10*3/uL (0.1-1.2); Monocytes Percent Auto 12.9 % (2-11); Neutrophils Absolute Auto 2.8 X10*3/uL (2.0-8.3); Neutrophils Percent Auto 57.1 % (45-73); Platelet Count 51 X10*3/uL (160-400); Red Blood Count 4.35 X10*6/uL (4.60-5.80); Red Cell Distribution Width 14.3 % (11.0-16.0)
--- NOTE | 2020-07-31 05:30 | PC.NURSE ---
PRECIDEX MAINTAINED 1.5 MCG/KG/HR OVERNIGHT...PERIODS OF MORE WAKEFULNESS---CONVERSES BUT REMAINS DISORIENTED---TAKING FEW SIPS H20/ICE CHIPS W/O DIFFICULTY....HNV OVERNIGHT...BLADDER SCANNED NOW FOR 617ml...DOZING...AWAKENED...INSTRUCTED OF NECESSITY TO VOID--POSSIBLE NEED FOR CATHETERIZATION IF UNABLE--STATED I'LL FUCKING DO IT MYSELF--LEAVE ME ALONE! ....VOIDED 625ml YELLOW URINE VIA [place] CATHETER...AM LAB-WORK DRAWN BY ASHLY...ICU CREDIT CLERK PRESENT AND AWARE
[2020-07-31 05:36] LABS: MANUAL DIFF FLAG NO
[2020-07-31 05:42] LABS: Ammonia 54 umol/L (13-55)
[2020-07-31 05:53] LABS: Alanine Aminotransferase 68 U/L (0-40); Albumin Level 3.4 g/dL (3.5-5.0); Alkaline Phosphatase 113 U/L (39-117); Anion Gap 20 (12-20); Aspartate Amino Transferase 77 U/L (5-37); Bilirubin Total 1.1 mg/dL (0.0-1.0); Blood Urea Nitrogen 10 mg/dL (9-16); Calcium 8.4 mg/dL (8.4-10.2); Carbon Dioxide 20 mmol/L (22-29); Chloride 99 mmol/L (96-108); Creatinine Clr Calc Pharmacy 196.1; Estimated Glomerular Filt Rate > 60; Glucose Random 125 mg/dL (60-115); Magnesium 1.9 mg/dL (1.6-2.6); Phosphorus 3.5 mg/dL (2.7-4.5); Potassium 3.6 mmol/L (3.3-5.1); Sodium 135 mmol/L (135-145)
[2020-07-31 05:54] LABS: Venous Blood Gas Refer to POC result
[2020-07-31] MEDS: 0.9 % Sodium Chloride 1,000 ML 100 ML IVCONT (07:12)
[2020-07-31] MEDS: dexmedeTOMIDidine HCL/NS 400 MCG/100 ML INFUS..BTL 19.68 MCG IVCONT ×2 (10:26→15:24)
--- NOTE | 2020-07-31 10:57 | MHC.CM.PN ---
at this time pt is in the icu on continuous IV sedation. hence, details of his life at home are not available at this time and developing a dc plan should be deferred to a future time. pt would however benefit from a bhn and care team consult when the time is appropriate. pt's emr shows that he has family that lives in the area this may be helpful in a dc plan and transportation at dc. dc plan is uncertain at this time. cm to cont. to follow.
--- NOTE | 2020-07-31 12:29 | MHC.CARE ---
CARE team in contact with ICU regards pts medical status. Pt is currently on IV sedation and being monitored. Pt has a 1:[address] due to behavioral health concerns upon initial presentation to the ED yesterday and crisis assessment completed yesterday as well. Based on current status pt cannot be further assessed. CARE team can be consulted as needed.
--- NOTE | 2020-07-31 12:54 | PM.CCPN ---
Subjective Subjective Date of Service: 07/31/20 Interval History: 39-year-old gentleman with underlying history of alcohol abuse with prior alcohol withdrawal seizures, polysubstance abuse, hypertension admitted on 07/30/2020 initially with alcohol intoxication further complicated by delirium tremens requiring initiation of sedative drips and transferred to intensive care unit. No events overnight. Physical Exam Vital Signs: Vital Signs: Last Vital Signs Temp 97.2 F 07/31/20 08:00 Pulse 77 07/31/20 11:00 Resp 17 07/31/20 11:00 BP 134/79 07/31/20 11:00 Pulse Ox 94 07/31/20 11:00 Body Mass Index 38.0 Const: General: no acute distress and lethargic (Arousable) Nutritional Appearance: obese Orientation/consciousness: lethargic (Arousable) Eyes: Sclerae: sclerae normal EOM: EOMs intact bilaterally Neck: Neck: Yes no lymphadenopathy, Yes trachea midline and Yes supple Resp: Effort & Inspection: normal respiratory effort and no respiratory distress Auscultation: clear to auscultation bilaterally Cardio: Rate: regular rate Rhythm: regular rhythm Heart sounds: no gallops, no murmurs and no rubs GI: Palpation (GI): Soft to palpation and Other GI palpation findings present ( Nontender) Auscultation: normal bowel sounds Extrem: General: Yes no pedal edema, No clubbing and No cyanosis Objective Data Labs CBC & Chem 7: 07/31/20 05:20 07/31/20 05:20 Labs: Laboratory Results - last 24 hr 07/30/20 07/30/20 07/30/20 12:21 12:21 12:21 WBC RBC Hgb Hct MCV MCH MCHC RDW Plt Count 79 L MPV 10.0 Immature Gran % (Auto) Neut % (Auto) Lymph % (Auto) [place] % (Auto) Eos % (Auto) Baso % (Auto) Lymph # (Auto) [place] # (Auto) Eos # (Auto) Baso # (Auto) Abs Immat Gran (auto) Absolute Neuts (auto) Absolute Nucleated RBC Nucleated RBC % (auto) Smear Tech's Comments VERIFIED VBG pH VBG pCO2 VBG pO2 VBG HCO3 VBG O2 Saturation VBG Base Excess Sodium 134 L Potassium 3.3 Chloride 92 L Carbon Dioxide 21 L Anion Gap 24 H BUN 11 Creatinine 0.76 Estim Creat Clear Calc 173.8 Estimated GFR > 60 Random Glucose 76 Calcium 9.2 D Phosphorus Magnesium 1.6 Total Bilirubin 1.3 H AST 127 H ALT 100 H Alkaline Phosphatase 145 H Ammonia B-Natriuretic Peptide 91 Total Protein 7.0 Albumin 4.0 07/30/20 07/31/20 07/31/20 21:21 05:20 05:20 WBC 5.0 RBC 4.35 L Hgb 13.2 L Hct 37.5 L MCV 86.2 MCH 30.3 MCHC 35.2 RDW 14.3 Plt Count 51 L D MPV 10.1 Immature Gran % (Auto) 0.2 Neut % (Auto) 57.1 Lymph % (Auto) 27.6 [place] % (Auto) 12.9 H Eos % (Auto) 2.0 Baso % (Auto) 0.2 Lymph # (Auto) 1.4 [place] # (Auto) 0.6 Eos # (Auto) 0.1 Baso # (Auto) 0.0 Abs Immat Gran (auto) 0.01 Absolute Neuts (auto) 2.8 Absolute Nucleated RBC 0.000 Nucleated RBC % (auto) 0.0 Smear Tech's Comments VBG pH VBG pCO2 VBG pO2 VBG HCO3 VBG O2 Saturation VBG Base Excess Sodium 133 L 135 Potassium 3.2 L 3.6 Chloride 95 L 99 Carbon Dioxide 23 20 L Anion Gap 18 20 BUN 11 10 Creatinine 0.75 0.71 Estim Creat Clear Calc 185.6 196.1 Estimated GFR > 60 > 60 Random Glucose 99 125 H Calcium 8.3 L D 8.4 Phosphorus 1.6 L 3.5 Magnesium 1.9 1.9 Total Bilirubin 1.1 H AST 77 H ALT 68 H Alkaline Phosphatase 113 D Ammonia B-Natriuretic Peptide Total Protein 6.0 L Albumin 3.4 L 07/31/20 07/31/20 05:20 05:21 WBC RBC Hgb Hct MCV MCH MCHC RDW Plt Count MPV Immature Gran % (Auto) Neut % (Auto) Lymph % (Auto) [place] % (Auto) Eos % (Auto) Baso % (Auto) Lymph # (Auto) [place] # (Auto) Eos # (Auto) Baso # (Auto) Abs Immat Gran (auto) Absolute Neuts (auto) Absolute Nucleated RBC Nucleated RBC % (auto) Smear Tech's Comments VBG pH 7.53 H VBG pCO2 27 VBG pO2 77 VBG HCO3 22 VBG O2 Saturation 96.0 VBG Base Excess 1.4 Sodium Potassium Chloride Carbon Dioxide Anion Gap BUN Creatinine Estim Creat Clear Calc Estimated GFR Random Glucose Calcium Phosphorus Magnesium Total Bilirubin AST ALT Alkaline Phosphatase Ammonia 54 B-Natriuretic Peptide Total Protein Albumin Progress Note: A&P Assessment and plan (1) Delirium tremens: Status: Acute Assessment and Plan: Assessment: 39-year-old gentleman admitted with delirium tremens now requiring sedative drips. Plan: Neuro: Delirium tremens, continue to titrate off sedative drips as tolerated. Cardiac: No acute issues. Pulmonary: No acute issues. Renal: No acute issues. Endo: No acute issues. GI: No acute issues. ID: No acute issues Heme/Onc: No acute issues. Psych: No acute issues. Miscellaneous: No acute issues. Prophylaxis: Pneumatic compression Diet: Nothing by mouth (2) Hypertension: Status: Acute
--- NOTE | 2020-07-31 13:30 | PC.NURSE ---
Pt with 1:1 sitter at bedside, oriented x3 but vague. States still having suicidal thoughts, no plan. CIWA 10,12 respectively. Pt less roughly 44hrs since last drink of 1/2 gal. vodka. Pt was arousable to shaking at start of shift with precedex running at 1.5mcg/kg/hr. Afib 55-80 with R-R up to 3.2 sec at times, titrated precedex down to 0.6mcg/kg/hr. Pt more alert, spontaneously rouses, whene sleeping, wakens to voice. Mild/mod tremors to arms, photosensitivity, denies tactile/visual/auditiory hallucinations. Headache 07/30 to 05/30 MD aware, no analgesia at this time. pt denies chest pain /sob. [place] cath draining urine. Incontinent of stool x2 this shift.
--- NOTE | 2020-07-31 16:31 | MHC.CARE ---
CARE Team has discontinued assessment process at this time. Once medically cleared, BHN should be consulted for crisis assessment. If BHN can not respond, please re-consult CARE Team for evaluation.
[2020-07-31] MEDS: ondansetron HCL 4 MG/2 ML VIAL IVPUSH ×2 (18:27→22:01)
[2020-07-31] MEDS: dexmedeTOMIDidine HCL/NS 400 MCG/100 ML INFUS..BTL 32.8 MCG IVCONT (18:58)
[2020-08-01] VITALS (25 sets, daily range): BP systolic 116–171; BP diastolic 59–108; PULSE 66–140; RESP 14–32; TEMP 36.1–36.9; O2SAT 91–98
[2020-08-01] MEDS: dexmedeTOMIDidine HCL/NS 400 MCG/100 ML INFUS..BTL 49.2 MCG IVCONT ×4 (00:12→06:20)
[2020-08-01] MEDS: PHENobarbitaL 30 MG TABLET PO ×2 (05:16→20:27)
[2020-08-01 05:29] LABS: VBG HCO3 25 mmol/L (22-26); VBG pCO2 30 mmHg; VBG pH 7.52 (7.32-7.43); VBG pO2 74 mmHg
[2020-08-01 05:31] LABS: Venous Blood Gas Refer to POC result
[2020-08-01 05:33] LABS: Basophils Percent Auto 0.3 % (0-2); Hemoglobin 14.3 g/dl (14.0-18.0); Imm Gran Abs Auto 0.05 X10*3/uL (0.00-0.03); Imm Gran Pct Auto 0.7 % (0.0-0.4); PLT CLUMP 1; Red Cell Distribution Width 13.8 % (11.0-16.0); SCAN SMEAR FLAG 1
[2020-08-01 05:35] LABS: Eosinophils Absolute Auto 0.3 X10*3/uL (0.0-0.4); Eosinophils Percent Auto 3.9 % (0-4); Hematocrit 41.3 % (42-52); Lymphocytes Absolute Auto 1.9 X10*3/uL (1.2-4.9); Lymphocytes Percent Auto 27.3 % (20-40); Mean Corpuscular HGB Conc 34.6 g/dl (31.0-36.0); Mean Corpuscular Hemoglobin 29.9 pg (27.0-33.0); Mean Corpuscular Volume 86.4 fL (80-98); Mean Platelet Volume 10.9 fL (9.4-12.4); Monocytes Absolute Auto 0.8 X10*3/uL (0.1-1.2); Monocytes Percent Auto 12.1 % (2-11); Neutrophils Absolute Auto 3.8 X10*3/uL (2.0-8.3); Neutrophils Percent Auto 55.7 % (45-73); Red Blood Count 4.78 X10*6/uL (4.60-5.80); White Blood Count 6.8 X10*3/uL (4.8-10.8)
[2020-08-01 05:36] LABS: MANUAL DIFF FLAG NO; Platelet Count 50 X10*3/uL (160-400)
[2020-08-01 06:01] LABS: Albumin Level 3.5 g/dL (3.5-5.0); Anion Gap 16 (12-20); Blood Urea Nitrogen 7 mg/dL (9-16); Calcium 8.5 mg/dL (8.4-10.2); Carbon Dioxide 23 mmol/L (22-29); Chloride 95 mmol/L (96-108); Creatinine Clr Calc Pharmacy 214.2; Estimated Glomerular Filt Rate > 60; Glucose Random 109 mg/dL (60-115); Magnesium 1.7 mg/dL (1.6-2.6); Phosphorus 2.8 mg/dL (2.7-4.5); Potassium 2.7 mmol/L (3.3-5.1); Sodium 131 mmol/L (135-145)
--- NOTE | 2020-08-01 06:08 | PC.NURSE ---
Shift eval 3a-7a: Patient became more coherent - waking up, able to tell story about why he came in. Reports still having auditory hallucinations about killing self, but reports feeling safe and does not have a plan. Patient c/o feeling anxious, craving , Karyn PEÑALOZA aware - ordered to restart pheno - gave 30mg PO pheno with good effect. Patient resting now. Seizure prec in place. 1:[address] for SI - no witnessed seizures at this time. Patient calm, cooperative w/ care. BP running high - >170/100, plan to monitor. Afib 60's. Drinking a lot of fluids, voiding almost 3 liters 11p-7a - electrolytes from AM abnormal, Karyn PEÑALOZA ordering replacement therapy.
[2020-08-01] MEDS: dexmedeTOMIDidine HCL/NS 400 MCG/100 ML INFUS..BTL 32.8 MCG IVCONT ×2 (08:23→21:52)
[2020-08-01] MEDS: Magnesium Sulfate/H2O 2 GM/50 ML PIGGYBACK IV (08:23)
[2020-08-01] MEDS: Potassium Chloride Packet 20 MEQ PACKET 60 MEQ PO ×2 (08:24→10:21)
[2020-08-01] MEDS: ondansetron HCL 4 MG/2 ML VIAL IVPUSH (08:24)
[2020-08-01] MEDS: Thiamine HCL 100 MG TABLET 300 MG PO (08:24)
[2020-08-01] MEDS: dexmedeTOMIDidine HCL/NS 400 MCG/100 ML INFUS..BTL 26.24 MCG IVCONT ×2 (14:27→18:04)
--- NOTE | 2020-08-01 14:37 | PM.CCPN ---
Subjective Subjective Date of Service: 08/01/20 Interval History: 39-year-old gentleman with underlying history of alcohol abuse with prior alcohol withdrawal seizures, polysubstance abuse, hypertension admitted on 07/30/2020 initially with alcohol intoxication further complicated by delirium tremens requiring initiation of sedative drips and transferred to intensive care unit. No events overnight. Continues to require sedative drips. Physical Exam Vital Signs: Vital Signs: Last Vital Signs Temp 97.3 F 08/01/20 12:00 Pulse 99 08/01/20 14:00 Resp 26 H 08/01/20 14:00 BP 140/87 H 08/01/20 14:00 Pulse Ox 93 08/01/20 14:00 Body Mass Index 38.0 Const: General: no acute distress and lethargic (Arousable, intermittent agitated) Nutritional Appearance: obese Orientation/consciousness: lethargic (Arousable, intermittent agitated) Eyes: Sclerae: sclerae normal EOM: EOMs intact bilaterally Neck: Neck: Yes no lymphadenopathy, Yes trachea midline and Yes supple Resp: Effort & Inspection: normal respiratory effort and no respiratory distress Auscultation: clear to auscultation bilaterally Cardio: Rate: regular rate Rhythm: regular rhythm Heart sounds: no gallops, no murmurs and no rubs GI: Palpation (GI): Soft to palpation and Other GI palpation findings present ( Nontender) Auscultation: normal bowel sounds Extrem: General: Yes no pedal edema, No clubbing and No cyanosis Objective Data Labs CBC & Chem 7: 08/01/20 05:20 08/01/20 05:20 Labs: Laboratory Results - last 24 hr 08/01/20 08/01/20 08/01/20 05:20 05:20 05:23 WBC 6.8 RBC 4.78 Hgb 14.3 Hct 41.3 L MCV 86.4 MCH 29.9 MCHC 34.6 RDW 13.8 Plt Count 50 L MPV 10.9 Immature Gran % (Auto) 0.7 H Neut % (Auto) 55.7 Lymph % (Auto) 27.3 [place] % (Auto) 12.1 H Eos % (Auto) 3.9 Baso % (Auto) 0.3 Lymph # (Auto) 1.9 [place] # (Auto) 0.8 Eos # (Auto) 0.3 Baso # (Auto) 0.0 Abs Immat Gran (auto) 0.05 H Absolute Neuts (auto) 3.8 Absolute Nucleated RBC 0.000 Nucleated RBC % (auto) 0.0 VBG pH 7.52 H VBG pCO2 30 VBG pO2 74 VBG HCO3 25 VBG O2 Saturation 95.0 VBG Base Excess TNP Sodium 131 L Potassium 2.7 L D Chloride 95 L Carbon Dioxide 23 Anion Gap 16 BUN 7 L Creatinine 0.65 Estim Creat Clear Calc 214.2 Estimated GFR > 60 Random Glucose 109 Calcium 8.5 Phosphorus 2.8 Magnesium 1.7 Albumin 3.5 Progress Note: A&P Assessment and plan (1) Delirium tremens: Status: Acute Assessment and Plan: Assessment: 39-year-old gentleman admitted with delirium tremens now requiring sedative drips. Plan: Neuro: Delirium tremens, continue to titrate off sedative drips as tolerated. Cardiac: AFib and hypertension, restarted on beta-jamal for rate control. Unable to fully anticoagulate secondary to thrombocytopenia. Pulmonary: No acute issues. Renal: No acute issues. Endo: No acute issues. GI: No acute issues. ID: No acute issues Heme/Onc: Thrombocytopenia, likely alcohol induced. Continue to monitor. Psych: No acute issues. Miscellaneous: Underlying substance abuse, to restart on Suboxone after dose verification. Prophylaxis: Pneumatic compression Diet: Regular diet (2) Hypertension: Status: Acute (3) Afib: Status: Acute (4) Substance abuse: Status: Inactive
--- NOTE | 2020-08-01 14:43 | PC.NURSE ---
Precedex titrated down to 0.4mcg/kg/hr, HR up to 130 afib with increased agitation, precedex back up to 0.8mcg/kg/hr, pt calmer and HR 90-110 afib. RYLAN today. Suboxone clinic called and dose verified 16mg. aware.
[2020-08-01] MEDS: Metoprolol Succinate ER 50 MG TAB.ER.24H PO (14:53)
[2020-08-01] MEDS: Acetaminophen 325 MG TABLET 650 MG PO (18:17)
[2020-08-01] MEDS: Buprenorphine/Naloxone 8/2 mg FILM 1 FILM SUBLINGUAL (20:24)
[2020-08-02] VITALS (30 sets, daily range): BP systolic 104–162; BP diastolic 61–100; PULSE 68–167; RESP 10–21; TEMP 36.1–36.4; O2SAT 90–97
[2020-08-02] MEDS: Acetaminophen 325 MG TABLET 650 MG PO ×4 (00:06→23:23)
[2020-08-02] MEDS: dexmedeTOMIDidine HCL/NS 400 MCG/100 ML INFUS..BTL 32.8 MCG IVCONT ×2 (00:59→22:01)
--- NOTE | 2020-08-02 02:14 | PC.NURSE ---
Addendum entered by Fer Presley RN 08/02/20 06:25: PRECEDEX WEANED FROM 1.0 TO 9.4 MCG/KG/HR...REMAINS CO-OPERATIVE...1;1 SITTER REMAINS AT BEDSIDE Original Note: CARE ASSUMED 23:15....AWAKE/ALERT...CONVERSES..SPEECH CLEAR...ORIENTED X3 BUT VAGUE RESPONSES TO OTHER QUESTIONS...DOES NOT REMEMBER THIS ASSISTANT DIRECTOR OF SECURITY FROM 48 HOURS AGO..STATED MY MIND WASN'T RIGHT THEN ...MILDLY DIAPHORETIC TO FOREHEAD..NO TREMORS AT PRESENT...C/O MILD NAGGING HEADACHE...MEDICATED WITH PRN TYLENOL WITH EFFECT...PRECIDEX DRIP REMAINS 1.0 MCG/KG/HR..TO MAINTAIN OVERNIGHT AND TO RE-ATTEMPT WEANING IN AM...ATRIAL FIB HR 110'S-120'S AT HS...CURRENTLY DOZING AND HR 70'S..NO DISTRESS ON ROOM AIR...[place] CATHETER REMAINS IN PLACE
[2020-08-02] MEDS: dexmedeTOMIDidine HCL/NS 400 MCG/100 ML INFUS..BTL 19.68 MCG IVCONT (04:21)
[2020-08-02 06:00] LABS: Eosinophils Absolute Auto 0.2 X10*3/uL (0.0-0.4); Mean Corpuscular Volume 87.3 fL (80-98); PLT CLUMP 1; SCAN SMEAR FLAG 1
[2020-08-02 06:02] LABS: Basophils Percent Auto 0.5 % (0-2); Eosinophils Percent Auto 3.6 % (0-4); Hematocrit 41.4 % (42-52); Hemoglobin 14.4 g/dl (14.0-18.0); Imm Gran Abs Auto 0.06 X10*3/uL (0.00-0.03); Imm Gran Pct Auto 0.9 % (0.0-0.4); Lymphocytes Absolute Auto 2.6 X10*3/uL (1.2-4.9); Lymphocytes Percent Auto 40.9 % (20-40); Mean Corpuscular HGB Conc 34.8 g/dl (31.0-36.0); Mean Corpuscular Hemoglobin 30.4 pg (27.0-33.0); Monocytes Absolute Auto 0.9 X10*3/uL (0.1-1.2); Monocytes Percent Auto 13.4 % (2-11); Neutrophils Absolute Auto 2.6 X10*3/uL (2.0-8.3); Neutrophils Percent Auto 40.7 % (45-73); Red Blood Count 4.74 X10*6/uL (4.60-5.80); Red Cell Distribution Width 14.3 % (11.0-16.0); White Blood Count 6.3 X10*3/uL (4.8-10.8)
[2020-08-02 06:05] LABS: MANUAL DIFF FLAG NO; Platelet Count 68 X10*3/uL (160-400)
[2020-08-02 06:38] LABS: Alanine Aminotransferase 50 U/L (0-40); Albumin Level 3.3 g/dL (3.5-5.0); Alkaline Phosphatase 114 U/L (39-117); Anion Gap 13 (12-20); Aspartate Amino Transferase 40 U/L (5-37); Bilirubin Total 0.5 mg/dL (0.0-1.0); Blood Urea Nitrogen 12 mg/dL (9-16); Calcium 8.7 mg/dL (8.4-10.2); Carbon Dioxide 26 mmol/L (22-29); Chloride 101 mmol/L (96-108); Creatinine Clr Calc Pharmacy 201.8; Estimated Glomerular Filt Rate > 60; Glucose Random 101 mg/dL (60-115); Phosphorus 4.1 mg/dL (2.7-4.5); Potassium 3.1 mmol/L (3.3-5.1); Sodium 137 mmol/L (135-145); Total Protein 6.1 g/dL (6.5-8.0)
--- NOTE | 2020-08-02 07:11 | PM.DS ---
DS: Providers Provider Date of Service: 08/02/20 Date of admission: 07/30/20 16:10 Primary care physician: Unknown Physician DS: Diagnosis Discharge Diagnosis (1) Delirium tremens: Status: Acute (2) Hypertension: Status: Acute (3) Afib: Status: Acute (4) Substance abuse: Status: Inactive DS: Medications Discharge Medications Home Medications: Home Medications Medication Instructions Recorded Confirmed buprenorphine-naloxone [Suboxone] 2 film BUCCAL DAILY 02/15/20 07/30/20 clonidine HCl 0.2 mg PO BID 02/15/20 07/30/20 gabapentin 600 mg PO TID 02/15/20 07/30/20 atorvastatin 20 mg PO BEDTIME 07/30/20 07/30/20 bupropion HCl 300 mg PO QAM 07/30/20 07/30/20 cholecalciferol (vitamin D3) 50 mcg PO DAILY 07/30/20 07/30/20 metoprolol succinate 25 mg PO DAILY 07/30/20 07/30/20 omeprazole 20 mg PO DAILY PRN 07/30/20 07/30/20 sertraline [Zoloft] 150 mg PO DAILY 07/30/20 07/30/20 vitamin B complex 1 tab PO DAILY 07/30/20 07/30/20 DS: Summary Time Spent with Patient Time attestation: Total time spent providing and/or coordinating discharge services: Quality: Stroke Does the patient have a stroke diagnosis?: Yes Physical Exam Vital Signs: Vital Signs: Last Vital Signs Temp 97.2 F 08/02/20 07:00 Pulse 71 08/02/20 07:00 Resp 10 L 08/02/20 07:00 BP 104/81 08/02/20 07:00 Pulse Ox 94 08/02/20 07:00 Body Mass Index 38.0 DS: Data Data Completed and Pending Labs on day of discharge: Laboratory Results - last 24 hr 08/01/20 08/02/20 08/02/20 05:23 05:32 05:32 WBC 6.3 RBC 4.74 Hgb 14.4 Hct 41.4 L MCV 87.3 MCH 30.4 MCHC 34.8 RDW 14.3 Plt Count 68 L D MPV 11.0 Immature Gran % (Auto) 0.9 H Neut % (Auto) 40.7 L Lymph % (Auto) 40.9 H [place] % (Auto) 13.4 H Eos % (Auto) 3.6 Baso % (Auto) 0.5 Lymph # (Auto) 2.6 [place] # (Auto) 0.9 Eos # (Auto) 0.2 Baso # (Auto) 0.0 Abs Immat Gran (auto) 0.06 H Absolute Neuts (auto) 2.6 Absolute Nucleated RBC 0.000 Nucleated RBC % (auto) 0.0 VBG Base Excess TNP Sodium 137 Potassium 3.1 L Chloride 101 Carbon Dioxide 26 Anion Gap 13 BUN 12 D Creatinine 0.69 Estim Creat Clear Calc 201.8 Estimated GFR > 60 Random Glucose 101 Calcium 8.7 Phosphorus 4.1 Magnesium 2.0 Total Bilirubin 0.5 AST 40 H D ALT 50 H Alkaline Phosphatase 114 Total Protein 6.1 L Albumin 3.3 L Discharge Plan Discharge Date of admission: 07/30/20 16:10 Attending physician on admission: Juan Kern Primary Care Provider: Physician,Unknown Discharge Medications: No Action gabapentin 600 mg Tablet 600 mg PO TID RF: 0 clonidine HCl 0.2 mg Tablet 0.2 mg PO BID RF: 0 buprenorphine-naloxone [Suboxone] 8-2 mg Film 2 film BUCCAL DAILY RF: 0 atorvastatin 20 mg Tablet 20 mg PO BEDTIME RF: 0 sertraline [Zoloft] 100 mg Tablet 150 mg PO DAILY RF: 0 omeprazole 20 mg Capsule,Delayed Release(Dr/Ec) 20 mg PO DAILY PRN (Reason: Acid Reflux) RF: 0 vitamin B complex Tablet 1 tab PO DAILY RF: 0 metoprolol succinate 25 mg Tablet Extended Release 24 Hr 25 mg PO DAILY RF: 0 bupropion HCl 300 mg Tablet Extended Release 24 Hr 300 mg PO QAM RF: 0 cholecalciferol (vitamin D3) 50 mcg (2,000 unit) Tablet 50 mcg PO DAILY RF: 0
[2020-08-02] MEDS: Metoprolol Succinate ER 50 MG TAB.ER.24H PO (08:09)
[2020-08-02] MEDS: Potassium Chloride Packet 20 MEQ PACKET 40 MEQ PO (08:09)
[2020-08-02] MEDS: Buprenorphine/Naloxone 8/2 mg FILM 1 FILM SUBLINGUAL ×2 (08:09→19:36)
[2020-08-02] MEDS: Nicotine 21 MG PATCH.TD24 TRANSDERMA (08:09)
[2020-08-02] MEDS: PHENobarbitaL 30 MG TABLET PO ×2 (08:10→19:36)
[2020-08-02] MEDS: Thiamine HCL 100 MG TABLET 300 MG PO (08:10)
--- NOTE | 2020-08-02 08:31 | CA_ITS ---
Transthoracic Echocardiogram Patient (Last, First, Middle): Paul Godfrey, Gender: Male Date of : 1980 Age: 39 Procedure Date: 08/02/2020 Procedure Type: Transthoracic Echocardiogram Location: ICU Height: 185.42 cm Weight: 130.64 kg BSA: 2.51 m2 Heart Rate: bpm BP: 119 / 84 mmHg Oenologist: KENDRICK Joseph MD: Juan Kern MD Tray Drier Operator: Serg Lang MD Symptoms: Afib, ?alcohol cardiomyopathy Study Quality: Technically Difficult/contrast ECG Rhythm: Atrial Fibrillation with rapid ventricular respons Conclusions: - 1. Technically difficult study to interpret due to atrial fibrillation rapid ventricular response and poor windows 2. Normal LV systolic function with LVEF of 55-60% 3. Limited evaluation of cardiac valvular structure but with within normal limits cardiac valvular Doppler Findings Procedure Information Contrast agent, definity, is being given per protocol without apparent complications. Left Ventricle The left ventricle was not well visualized. Normal left ventricular cavity size. There is normal left ventricular wall thickness. The left ventricular systolic function is normal. The visually estimated ejection fraction is between 55-60%. Regional wall motion abnormalities can not be excluded due to suboptimal endocardial definition. Diastolic function is indeterminate on the basis of available data. Right Ventricle The right ventricle was not well visualized. Normal right ventricular cavity size. Atria The left atrium was not well visualized. Interatrial shunt cannot be excluded. The right atrium was not well visualized. Aortic Valve The aortic valve was not well visualized. There is no aortic valve stenosis. There is no aortic valve regurgitation. Mitral Valve The mitral valve was not well visualized. There is no mitral valve regurgitation. There is no mitral valve stenosis. Pulmonic Valve The pulmonic valve was not well visualized. Tricuspid Valve The tricuspid valve was not well visualized. The right ventricular systolic pressure is not calculated. Great Vessels The aorta was not well visualized. The pulmonary artery was not well visualized. Venous The inferior vena cava was not well visualized. Pericardium/Pleural The pericardium was not well visualized. Prior Study Comparison No prior study available for comparison. Measurements 2D Linear Measurements IVSd: 0.92 0.6-0.9/0.6-1.0 cm LVIDd: 4.82 3.9-5.3/4.2-5.9 cm LVIDd Index: 1.92 2.4-3.2/2.2-3.1 cm/m2 LVIDs: 3.47 2.0-3.6 cm LVPWd: 0.99 0.7-1.1 cm Ao Root: 4.00 2.1-3.5 cm LA Diam: 4.60 2.7-3.8/3.0-4.0 cm LAIDs Index: 1.83 1.5-2.3 cm/m2 LV Mass: 288.12 67-162/88-224 g LV Mass Index: 114.79 43-95/49-115 g/m2 LVOT Diam: 2.20 3.0+(-)1.3 cm Aortic Valve AoV Pk Sandro: 1.75 AoV Mn Sandro: 1.25 AoV VTI: 0.27 AoV Pk Grad: 12.00 Aov Mn Grad: 7.00 LVOT LVOT Diam: 2.20 LVOT Area: 3.80 Tricuspid Valve TR Pk Sandro: 2.17 TR Pk Grad: 19.00 Great Vessels Aorta Ao Root-2D: 4.00 2.0-3.7 cm Ao Asc: 3.50 2.1-3.4 cm Ao Arch: 3.30 Updated in Other Vendor System with Status of Final Serg Lang MD electronically signed on 08/02/2020 3:33:54 PM with status of Final
[2020-08-02] MEDS: Potassium Chloride Packet 20 MEQ PACKET 60 MEQ PO (08:33)
[2020-08-02] MEDS: dilTIAZem HCL 50 MG/10 ML VIAL 10 MG IVPUSH ×2 (10:52→13:02)
--- NOTE | 2020-08-02 11:14 | PC.NURSE ---
Addendum entered by Darrius Bailey RN 08/02/20 14:14: HR back up to 175, 10mg IVP cardizem given and 180mg PO cardizem given. HR down to 130bpm. CIWA at 1000 17, at 1400 22. MD aware, keeping another night here in ICU. Gyroscopic Engineering Technician in to do echocardiogram at this time. 1:[address]. Original Note: Pt A&Ox3, precedex titrated off at 0830, withdrawl symptoms slightly elevated, pt is still pleasent and cooperative. Pt attempted to ambulate to commode x2 assist, very shaky, HR up to 170, pt layed back in bed for 10 minutes and HR would come down to 130 breifly than go back up to 170. BP stable 119/82, 10mg IVP cardizem given, HR now ranging 115-140, MD aware, no further orders at this time.
[2020-08-02] MEDS: dilTIAZem HCL CD 180 MG CAP.ER.24H PO (13:01)
--- NOTE | 2020-08-02 13:23 | P.PNCC_ITS ---
Subjective Subjective Date of Service: 08/02/20 Interval History: 39-year-old gentleman with underlying history of alcohol abuse with prior alcohol withdrawal seizures, polysubstance abuse, hypertension admitted on 07/30/2020 initially with alcohol intoxication further complicated by delirium tremens requiring initiation of sedative drips and AFib with RVR. Transferred to intensive care unit. No events overnight. Titrated off Precedex drip, however still with significant AFib with RVR Physical Exam Vital Signs: Vital Signs: Last Vital Signs Temp 97.2 F 08/02/20 07:00 Pulse 167 H 08/02/20 13:02 Resp 14 08/02/20 13:00 BP 150/89 H 08/02/20 13:02 Pulse Ox 93 08/02/20 13:00 Body Mass Index 38.0 Const: General: no acute distress, alert and awake Eyes: Sclerae: sclerae normal EOM: EOMs intact bilaterally Neck: Neck: Yes no lymphadenopathy, Yes trachea midline and Yes supple Resp: Effort & Inspection: normal respiratory effort and no respiratory distress Auscultation: clear to auscultation bilaterally Cardio: Rate: tachycardic Rhythm: abnormal rhythm irregularly irregular Heart sounds: no gallops, no murmurs and no rubs GI: Palpation (GI): Soft to palpation and Other GI palpation findings present ( Nontender) Auscultation: normal bowel sounds Extrem: General: Yes no pedal edema, No clubbing and No cyanosis Objective Data Labs CBC & Chem 7: 08/02/20 05:32 08/02/20 05:32 Labs: Laboratory Results - last 24 hr 08/02/20 08/02/20 05:32 05:32 WBC 6.3 RBC 4.74 Hgb 14.4 Hct 41.4 L MCV 87.3 MCH 30.4 MCHC 34.8 RDW 14.3 Plt Count 68 L D MPV 11.0 Immature Gran % (Auto) 0.9 H Neut % (Auto) 40.7 L Lymph % (Auto) 40.9 H Archer % (Auto) 13.4 H Eos % (Auto) 3.6 Baso % (Auto) 0.5 Lymph # (Auto) 2.6 Archer # (Auto) 0.9 Eos # (Auto) 0.2 Baso # (Auto) 0.0 Abs Immat Gran (auto) 0.06 H Absolute Neuts (auto) 2.6 Absolute Nucleated RBC 0.000 Nucleated RBC % (auto) 0.0 Sodium 137 Potassium 3.1 L Chloride 101 Carbon Dioxide 26 Anion Gap 13 BUN 12 D Creatinine 0.69 Estim Creat Clear Calc 201.8 Estimated GFR > 60 Random Glucose 101 Calcium 8.7 Phosphorus 4.1 Magnesium 2.0 Total Bilirubin 0.5 AST 40 H D ALT 50 H Alkaline Phosphatase 114 Total Protein 6.1 L Albumin 3.3 L Progress Note: A&P Assessment and plan (1) Afib: Status: Acute Assessment and Plan: Assessment: 39-year-old gentleman admitted with delirium tremens now requiring sedative drips. Plan: Neuro: Delirium tremens, continue to titrate off sedative drips as tolerated. Cardiac: AFib with RVR, requiring parenteral rate control medication. Started on extended release calcium channel jamal. Continue Toprol-XL. Not fully anticoagulated secondary to thrombocytopenia. Pulmonary: No acute issues. Renal: No acute issues. Endo: No acute issues. GI: No acute issues. ID: No acute issues Heme/Onc: Thrombocytopenia, likely alcohol induced. Continue to monitor. Psych: No acute issues. Miscellaneous: Restarted on Suboxone. Prophylaxis: Heparin Diet: Regular diet (2) Delirium tremens: Status: Acute (3) Hypertension: Status: Acute
[2020-08-02] MEDS: Heparin Sodium,Porcine 5,000 UNIT/ML VIAL 5000 UNIT SUBCUT ×2 (14:45→19:36)
[2020-08-02] MEDS: dexmedeTOMIDidine HCL/NS 400 MCG/100 ML INFUS..BTL 39.36 MCG IVCONT (18:26)
[2020-08-03] VITALS (32 sets, daily range): BP systolic 88–172; BP diastolic 54–94; PULSE 56–146; RESP 11–56; TEMP 36.3–36.6; O2SAT 93–98
[2020-08-03] MEDS: dexmedeTOMIDidine HCL/NS 400 MCG/100 ML INFUS..BTL 32.8 MCG IVCONT ×2 (01:03→18:01)
--- NOTE | 2020-08-03 03:24 | PC.NURSE ---
CARE ASSUMED 23:15...PRECIDEX DRIP 1 MCG/KG/HR AT HS...AWAKE..ALERT..ORIENTED X3...VAGUE RESPONSES AT TIMES BUT CALN/CO-OPERATIVE...1;1 SITTER REMAINS AT BEDSIDE D/T PAST VERBALIZATIONS OF SI...RESPIRATIONS EASY ON ROOM AIR...ATRIAL FIB HR 60'S-70'S....HR 50'S-60'S ASLEEP WITH OCCASSIONAL LONG R-R'S...PRECIDEX DRIP WEANED OVERNIGHT...CURRENTLY PRECIDEX= 0.4 MCG/KG/HR...AWAKE..REMAINS CO-OPERATIVE...FOREHEAD REMAINS DIAPHORETIC...TOLERATED SNACK EARLIER AND PO FLUIDS..NO COMPLAINTS AT PRESENT
[2020-08-03] MEDS: Heparin Sodium,Porcine 5,000 UNIT/ML VIAL 5000 UNIT SUBCUT ×3 (05:22→22:10)
[2020-08-03 05:45] LABS: Basophils Percent Auto 0.5 % (0-2); PLT CLUMP 1; SCAN SMEAR FLAG 1
[2020-08-03 05:47] LABS: Eosinophils Absolute Auto 0.2 X10*3/uL (0.0-0.4); Eosinophils Percent Auto 3.7 % (0-4); Hematocrit 42.5 % (42-52); Hemoglobin 14.4 g/dl (14.0-18.0); Imm Gran Abs Auto 0.07 X10*3/uL (0.00-0.03); Imm Gran Pct Auto 1.1 % (0.0-0.4); Lymphocytes Absolute Auto 2.9 X10*3/uL (1.2-4.9); Mean Corpuscular HGB Conc 33.9 g/dl (31.0-36.0); Mean Corpuscular Hemoglobin 30.2 pg (27.0-33.0); Mean Corpuscular Volume 89.1 fL (80-98); Mean Platelet Volume 10.8 fL (9.4-12.4); Monocytes Absolute Auto 0.9 X10*3/uL (0.1-1.2); Monocytes Percent Auto 13.6 % (2-11); Neutrophils Absolute Auto 2.3 X10*3/uL (2.0-8.3); Neutrophils Percent Auto 36.1 % (45-73); Platelet Count 108 X10*3/uL (160-400); Red Blood Count 4.77 X10*6/uL (4.60-5.80); Red Cell Distribution Width 14.7 % (11.0-16.0); White Blood Count 6.4 X10*3/uL (4.8-10.8)
[2020-08-03 05:50] LABS: MANUAL DIFF FLAG NO
[2020-08-03 06:07] LABS: Albumin Level 3.3 g/dL (3.5-5.0); Anion Gap 14 (12-20); Blood Urea Nitrogen 15 mg/dL (9-16); Calcium 8.9 mg/dL (8.4-10.2); Carbon Dioxide 23 mmol/L (22-29); Chloride 100 mmol/L (96-108); Creatinine Clr Calc Pharmacy 198.9; Estimated Glomerular Filt Rate > 60; Glucose Random 93 mg/dL (60-115); Magnesium 1.7 mg/dL (1.6-2.6); Phosphorus 5.7 mg/dL (2.7-4.5); Potassium 3.3 mmol/L (3.3-5.1); Sodium 134 mmol/L (135-145)
[2020-08-03] MEDS: Metoprolol Succinate ER 50 MG TAB.ER.24H 100 MG PO (08:14)
[2020-08-03] MEDS: PHENobarbitaL 15 MG TABLET PO ×2 (08:15→20:13)
[2020-08-03] MEDS: Thiamine HCL 100 MG TABLET 300 MG PO (08:15)
[2020-08-03] MEDS: Acetaminophen 325 MG TABLET 650 MG PO ×2 (08:15→16:16)
[2020-08-03] MEDS: dilTIAZem HCL CD 180 MG CAP.ER.24H PO (08:16)
[2020-08-03] MEDS: Nicotine 21 MG PATCH.TD24 TRANSDERMA (08:16)
[2020-08-03] MEDS: Buprenorphine/Naloxone 8/2 mg FILM 1 FILM SUBLINGUAL ×2 (08:16→20:12)
--- NOTE | 2020-08-03 09:37 | P.CDIC_ITS ---
CDI Concurrent Query Service Date: 08/03/20 Documentation Clarification: Please clarify if you are treating a proba ble/suspected/likely or confirmed: Toxic encephalopathy POA Metabolic encephalopathy Please specify if known or undertermined Provider Response: Other Other Diagnosis: Metabolic encephalopathy secondary to delirium tremens PLEASE DO NOT DELETE/MODIFY EXISTING CONTENT Additional information is needed in order to code to the highest accuracy and appropriate Severity of Illness (SOI). Please clarify the information noted below in your progress notes and discharge summary. Risk Factors/Clinical Indicators/Treatments Patient is confused, auditory hallucinations, since starting Suboxone 1.5 weeks ago voices have increased. Alcohol withdrawal, DT's ETOH >300 SI precautions, BHN re-evaluation Responded to IV ativan, oral librium and phenobarb per protocol. CDS: Meeta Drew CCS, CDIS Contact Number: [phone] Please Review the information above and exercise your independent professional judgment in responding to the query. If you concur, pleas document in the PROGRESS NOTES and DISCHARGE SUMMARY. If you do not agree with the query, please document in the query above. THIS QUERY IS PART OF THE PERMANENT MEDICAL RECORD
--- NOTE | 2020-08-03 09:56 | MHC.CM.PN ---
Addendum entered by Jeaneth Valles 08/03/20 10:00: Patient was living in a motel prior to coming to the ER. Due to weakness, physical therapy eval will be needed when medically stable. Addendum entered by Jeaneth Valles 08/03/20 09:58: Once patient is medically clear, crisis eval with BHN should be ordered. Original Note: Patient remains in ICU. Currently on Precedex drip. Nursing will attempt to d/c drip. If successful, will transfer to [place]. Per previous Case Management documentation, patient is homeless and has been struggling with polysubstance abuse. Patient has been active with [facility] for MAT. Will ask Care Team to see patient prior to discharge. Continue to monitor for d/c needs.
--- NOTE | 2020-08-03 13:52 | MHC.CARE ---
This copy writer met with pt who reported that I don't know what I said when I first entered into the hospital. I was withdrawing and drunk and did not feel good. I really think I might have said I wanted to because my body was in so much pain but I didn't want to actually or hurt myself. Pt reported that when he is drunk, he sometimes feels depressed and hopeless. Pt reported that he doesn't want to be with his brother who but feels he said that because he was intoxicated and loopy. Pt denied self harm thoughts while being in the hospital and denied current SI. Pt reports that he struggles with anxiety but denied depression. Pt reports when he is sober he does not experience SI. Pt reported that he has been grateful to be alive. Pt reported that he had a lot of clarity and wanted to do things differently again with his life and sobriety. Pt was tearful during 1:1 when talking about how grateful he felt for his life and people who have helped him. Reported that he is grateful for the authorities being called and for helping me. Pt reports struggles off and on with sobriety and recently for a year and a half finishing a sober program. Pt was transitioning into housing through [facility] and wanted to treat himself by going to a hotel. Pt reported that he started drinking and had received a lot of money which was a trigger for him. pt reported drinking handles and blacking out and snorting a bag of heroin. Pt reports that he has a lot of friends in and a counselor and positive supports for when he will discharge. Reported that 3 nights ago he noticed how he was laughing again at a movie. This copy writer spoke with providers in ICU and doctor decided that pt no longer needed 1:1. If pt needs further recovery support or supports related to mental health before discharge, CARE team can be contacted.
--- NOTE | 2020-08-03 14:39 | P.PNCC_ITS ---
Subjective Subjective Date of Service: 08/03/20 Interval History: 39-year-old gentleman with underlying history of alcohol abuse with prior alcohol withdrawal seizures, polysubstance abuse, hypertension admitted on 07/30/2020 initially with alcohol intoxication further complicated by delirium tremens requiring initiation of sedative drips and AFib with RVR. Transferred to intensive care unit. No events overnight. Prior Precedex drip overnight, now being titrated off. Continues with AFib with intermittent RVR. Critical Care Time (minutes): 0 Physical Exam Vital Signs: Vital Signs: Last Vital Signs Temp 97.5 F 08/03/20 09:17 Pulse 143 H 08/03/20 14:00 Resp 12 08/03/20 14:00 BP 116/89 08/03/20 12:59 Pulse Ox 96 08/03/20 14:00 Body Mass Index 38.0 Const: General: no acute distress, alert and awake Eyes: Sclerae: sclerae normal EOM: EOMs intact bilaterally Neck: Neck: Yes no lymphadenopathy, Yes trachea midline and Yes supple Resp: Effort & Inspection: normal respiratory effort and no respiratory distress Auscultation: clear to auscultation bilaterally Cardio: Rate: regular rate and tachycardic Rhythm: abnormal rhythm irregularly irregular Heart sounds: no gallops, no murmurs and no rubs GI: Palpation (GI): Soft to palpation and Other GI palpation findings present ( Nontender) Auscultation: normal bowel sounds Extrem: General: Yes no pedal edema, No clubbing and No cyanosis Objective Data Labs CBC & Chem 7: 08/03/20 05:19 08/03/20 05:19 Labs: Laboratory Results - last 24 hr 08/03/20 08/03/20 05:19 05:19 WBC 6.4 RBC 4.77 Hgb 14.4 Hct 42.5 MCV 89.1 MCH 30.2 MCHC 33.9 RDW 14.7 Plt Count 108 L D MPV 10.8 Immature Gran % (Auto) 1.1 H Neut % (Auto) 36.1 L Lymph % (Auto) 45.0 H Thurston % (Auto) 13.6 H Eos % (Auto) 3.7 Baso % (Auto) 0.5 Lymph # (Auto) 2.9 Thurston # (Auto) 0.9 Eos # (Auto) 0.2 Baso # (Auto) 0.0 Abs Immat Gran (auto) 0.07 H Absolute Neuts (auto) 2.3 Absolute Nucleated RBC 0.000 Nucleated RBC % (auto) 0.0 Sodium 134 L Potassium 3.3 Chloride 100 Carbon Dioxide 23 Anion Gap 14 BUN 15 Creatinine 0.70 Estim Creat Clear Calc 198.9 Estimated GFR > 60 Random Glucose 93 Calcium 8.9 Phosphorus 5.7 H Magnesium 1.7 Albumin 3.3 L Progress Note: A&P Assessment and plan (1) Hypertension: Status: Acute Assessment and Plan: Assessment: 39-year-old gentleman admitted with delirium tremens now requiring sedative drips. Plan: Neuro: Delirium tremens, continue to titrate off sedative drips as tolerated. Cardiac: AFib with RVR, still with intermittent rapid ventricular response. Continue to titrate Toprol-XL Cardizem extended-release. Not fully anticoagulated secondary to thrombocytopenia. Pulmonary: No acute issues. Renal: No acute issues. Endo: No acute issues. GI: No acute issues. ID: No acute issues Heme/Onc: Thrombocytopenia, likely alcohol induced. Continue to monitor. Psych: No acute issues. Miscellaneous: Restarted on Suboxone. Prophylaxis: Heparin Diet: Regular diet (2) Delirium tremens: Status: Acute (3) Afib: Status: Acute
[2020-08-03] MEDS: Potassium Chloride Packet 20 MEQ PACKET 40 MEQ PO (15:56)
[2020-08-03] MEDS: Magnesium Sulfate/H2O 2 GM/50 ML PIGGYBACK IV (15:58)
[2020-08-03] MEDS: ondansetron HCL 4 MG/2 ML VIAL IVPUSH (18:08)
[2020-08-03] MEDS: dexmedeTOMIDidine HCL/NS 400 MCG/100 ML INFUS..BTL 26.24 MCG IVCONT (20:09)
--- NOTE | 2020-08-03 20:47 | PC.NURSE ---
ASSUMED CARE OF PT AT 1500. PT A&O X3. COOPERATIVE. MILDLY ANXIOUS WITH VISIBLE TREMORS AND DIAHPORESIS. HEADACHE RELIEVED BY TYLENOL. NEW IV STARTED BY PREVIOUS RN BOTH OLD SITES OUTDATED. IV MAGNESIUM GIVEN ORDERED AND ORAL POTASSIUM. PT LATER C/O NAUSEA AND INCREASED ANXIETY, STATED HE FELT LIKE HIS WHOLE BODY WAS SHAKING. HE WAS ALSO DRENCHED IN SWEAT. SPOKE TO DR BAEZ AND PRECEDEX DRIP RESTARTED AND UP TO 1 MCG/KG/HR. GOOD EFFECT BY PRECEDEX. PT STATED HE FELT MUCH BETTER. TREMORS WERE STILL PRESENT BUT TO A LESSER DEGREE. PT STILL SWEATY BUT NOT MUCH AND STATED HE IS ALWAYS HOT. COOL SPONGE BATH GIVEN AND BED LINEN CHANGED. NO FURTHER NAUSEA AFTER PT RECEIVED ZOFRAN ORDERED PRN. NO VOMITTING NOTED. PT DID NOT WANT TO EAT SUPPER. DIETARY SENT A SANDWICH FOR LATER IN THE NIGHT IF HE SHOULD WANT. TAKING PO FLUIDS WELL. VOIDING IN URINOL. PT RECEIVED HIS REGULARLY SCHEDULED SUBOXONE AND PO PHENOBARBITOL AT HS. PRECEDEX WAS ABLE TO BE DECREASED FROM 1MCG TO 0.4 MCG. PT CALM ABD WATCHING TV AT PRESENT. MONIOTR SHOWS AFIB, HR UP TO 170 WITH ANY ACTIVITY BUT IS BETTER ON PRECEDEX. HR 70'S AT REST ON PRECEDEX. NO ECTOPY NOTED.
[2020-08-04] VITALS (28 sets, daily range): BP systolic 122–158; BP diastolic 64–106; PULSE 86–129; RESP 10–23; TEMP 36.2–37; O2SAT 93–98
[2020-08-04] MEDS: Heparin Sodium,Porcine 5,000 UNIT/ML VIAL 5000 UNIT SUBCUT (05:28)
[2020-08-04 06:18] LABS: Albumin Level 3.4 g/dL (3.5-5.0); Anion Gap 17 (12-20); Blood Urea Nitrogen 11 mg/dL (9-16); Calcium 8.7 mg/dL (8.4-10.2); Carbon Dioxide 23 mmol/L (22-29); Chloride 104 mmol/L (96-108); Creatinine Clr Calc Pharmacy 178.5; Estimated Glomerular Filt Rate > 60; Glucose Random 89 mg/dL (60-115); Magnesium 1.9 mg/dL (1.6-2.6); Phosphorus 4.6 mg/dL (2.7-4.5); Potassium 4.1 mmol/L (3.3-5.1); Sodium 140 mmol/L (135-145)
[2020-08-04] MEDS: ondansetron HCL 4 MG/2 ML VIAL IVPUSH (06:27)
[2020-08-04] MEDS: Nicotine 21 MG PATCH.TD24 TRANSDERMA (07:42)
[2020-08-04] MEDS: Buprenorphine/Naloxone 8/2 mg FILM 1 FILM SUBLINGUAL ×3 (07:42→20:44)
[2020-08-04] MEDS: PHENobarbitaL 15 MG TABLET PO ×3 (07:45→20:42)
[2020-08-04] MEDS: dilTIAZem HCL CD 180 MG CAP.ER.24H PO (07:47)
[2020-08-04] MEDS: Metoprolol Succinate ER 50 MG TAB.ER.24H 100 MG PO (07:48)
[2020-08-04] MEDS: Thiamine HCL 100 MG TABLET 300 MG PO (07:48)
[2020-08-04] MEDS: Acetaminophen 325 MG TABLET 650 MG PO ×3 (07:54→18:18)
--- NOTE | 2020-08-04 09:03 | MHC.PIE ---
Addendum entered by Hardy Lentz RN 08/04/20 14:13: E: NEW ORDER FOR REGLAN, ADMINISTERED PRIOR TO RE-ADMINISTRATION OF PO MEDICATIONS, WITH GOOD EFFECT. CIWA DOWN TO 10 THIS AFTERNOON, PATIENT CONTINUES TO HAVE FINE TREMORS OF BILATERAL HANDS, DIAPHORESIS, HYPERTENSION, md NOTIFIED AND NEW ORDER FOR CLONIDINE Original Note: P: MEDICATIONS WERE ADMINISTERED THIS MORNING DILTIAZEM, METOPROLOL, PHENOBARBITAL, AND TYLENOL PO, AND THEN SUBOXONE PLACED UNDER PATIENT'S TONGUE, PATIENT IMMEDIATELY VOMITED P(2): PATIENT CIWA RATED 24 DUE TO VOMITING, ANXIETY, VISIBLE SWEAT AND VISIBLE TREMORS OF ARMS; I: VOMITUS CAUGHT IN TOWEL AND EXAMINED: CONTAINED COLOR AND TEXTURE CONSISTENT WITH THE MEDICATIONS THAT WERE GIVEN ORALLY; MD NOTIFIED, AND THESE MEDICATIONS WERE RE-ORDERED. I(2): MD AWARE; RE-ADMINISTERING PHENOBARBITAL AND SUBOXONE
[2020-08-04] MEDS: Metoclopramide HCl 10 MG/2 ML VIAL 5 MG IVPUSH (09:14)
[2020-08-04] MEDS: Rivaroxaban 20 MG TABLET PO (09:17)
[2020-08-04] MEDS: dilTIAZem HCL CD 240 MG CAP.ER.DEG PO (09:18)
[2020-08-04] MEDS: Metoprolol Succinate ER 100 MG TAB.ER.24H PO (09:22)
--- NOTE | 2020-08-04 09:45 | PM.CCPN ---
Subjective Subjective Date of Service: 08/04/20 Interval History: 39-year-old gentleman with underlying history of alcohol abuse with prior alcohol withdrawal seizures, polysubstance abuse, hypertension admitted on 07/30/2020 initially with alcohol intoxication further complicated by delirium tremens requiring initiation of sedative drips and AFib with RVR. Transferred to intensive care unit. No events overnight. Titrated off Precedex drip overnight. This a.m. vomited his p.o. medications, additional single doses given. Critical Care Time (minutes): 0 Physical Exam Vital Signs: Vital Signs: Last Vital Signs Temp 97.1 F 08/04/20 08:00 Pulse 102 H 08/04/20 09:22 Resp 12 08/04/20 08:59 BP 142/88 H 08/04/20 09:22 Pulse Ox 94 08/04/20 08:59 Body Mass Index 38.0 Const: General: no acute distress, alert and awake Nutritional Appearance: obese Eyes: Sclerae: sclerae normal EOM: EOMs intact bilaterally Neck: Neck: Yes no lymphadenopathy, Yes trachea midline and Yes supple Resp: Effort & Inspection: normal respiratory effort and no respiratory distress Auscultation: clear to auscultation bilaterally Cardio: Rate: tachycardic Rhythm: abnormal rhythm irregularly irregular Heart sounds: no gallops, no murmurs and no rubs GI: Palpation (GI): Soft to palpation and Other GI palpation findings present ( Nontender) Auscultation: normal bowel sounds Extrem: General: No clubbing, No cyanosis and Yes pedal edema (Trace bilateral) Objective Data Labs CBC & Chem 7: 08/03/20 05:19 08/04/20 05:19 Labs: Laboratory Results - last 24 hr 08/04/20 05:19 Sodium 140 Potassium 4.1 D Chloride 104 Carbon Dioxide 23 Anion Gap 17 BUN 11 Creatinine 0.78 Estim Creat Clear Calc 178.5 Estimated GFR > 60 Random Glucose 89 Calcium 8.7 Phosphorus 4.6 H Magnesium 1.9 Albumin 3.4 L Progress Note: A&P Assessment and plan (1) Hypertension: Status: Acute Assessment and Plan: Assessment: 39-year-old gentleman admitted with delirium tremens, further complicated by AFib with RVR, initially requiring sedative drips. Plan: Neuro: Delirium tremens, continue to titrate off sedative drips as tolerated. Cardiac: AFib with RVR, still with intermittent rapid ventricular response. Continue to titrate Toprol-XL and Cardizem extended-release. Started on Xarelto. Pulmonary: No acute issues. Renal: No acute issues. Endo: No acute issues. GI: No acute issues. ID: No acute issues Heme/Onc: Thrombocytopenia, likely alcohol induced, improved. Continue to monitor. Psych: No acute issues. Miscellaneous: Opiod dependence, continue on Suboxone. Prophylaxis: Xarelto Diet: Regular diet (2) Delirium tremens: Status: Acute (3) Afib: Status: Acute
[2020-08-04] MEDS: cloNIDine HCL 0.2 MG TABLET PO ×2 (14:09→20:42)
[2020-08-04 16:02] LABS: Glucose, Whole Blood 122 mg/dL (60-115)
--- NOTE | 2020-08-04 17:23 | PC.NURSE ---
Assumed care at 07:00. Patient is alert, oriented x4, anxious, cooperative and answering questions appropriately. Patient has denied SI at each evaluation. Patient does demonstrate frustration and agitation to a mild degree with some components of care, such as wires/monitoring devices. Patient CIWA started at 24 (MD notified), then 10 (MD re-notified), then 8 today. This morning was visibly diaphoretic, anxious, mildly agitated, nauseous and vomiting, headache, and had visible tremors of bilateral upper extremities; patient was medicated with scheduled phenobarbital and other morning medications, but vomited these up immediately, and MD was notified, and new orders were placed for these same medications to be re-administered, as well as new orders for reglan and xarelto. Reglan with good effect, and patient tolerated subsequent medications. Patient without diabetic history, but given diaphoresis, poc was taken at 15:58 and was 122. Poor appetite today, late breakfast 100% eaten, but refused lunch. Patient nausea has resolved, and CIWA lowering, but expressed this afternoon that he was feeling jittery still and he was not tolerating it well, clarified the he meant the physical tremors were disturbing him, and BP was noted to be 150's-160's/100's, and patient described having been on clonidine at home, discussed with MD, and new order for clonidine home dose, and this was restarted with good effect; subsequent BP 120's/70's and patient reported feeling better. Patient in a-fib on monitor; this morning, had rate 120's-160's, Cardizem dose was increased today, and subsequently HR has been controlled. xarelto, metoprolol, and diltiazem education handouts printed, highlighted, and reviewed with patient, with some teachback. Patient had reported pain of headache 6/10 and left knee pain 3/10 today. Left knee pain attibuted to a fall at home before coming in; tylenol with good effect.
[2020-08-04] MEDS: buPROPion HCl XL 300 MG TAB.ER.24H PO (18:18)
[2020-08-04] MEDS: Melatonin 3 MG TABLET 6 MG PO (23:59)
[2020-08-05] VITALS (10 sets, daily range): BP systolic 105–150; BP diastolic 74–98; PULSE 80–101; RESP 16–18; TEMP 36.1–36.8; O2SAT 94–96; BMI 38.5
[2020-08-05 06:13] LABS: MANUAL DIFF FLAG NO
[2020-08-05 06:22] LABS: Basophils Percent Auto 0.5 % (0-2); Eosinophils Absolute Auto 0.2 X10*3/uL (0.0-0.4); Eosinophils Percent Auto 2.2 % (0-4); Hematocrit 43.6 % (42-52); Hemoglobin 14.3 g/dl (14.0-18.0); Imm Gran Abs Auto 0.07 X10*3/uL (0.00-0.03); Imm Gran Pct Auto 0.9 % (0.0-0.4); Lymphocytes Absolute Auto 2.5 X10*3/uL (1.2-4.9); Lymphocytes Percent Auto 33.6 % (20-40); Mean Corpuscular HGB Conc 32.8 g/dl (31.0-36.0); Mean Corpuscular Volume 91.6 fL (80-98); Mean Platelet Volume 9.6 fL (9.4-12.4); Monocytes Absolute Auto 1.4 X10*3/uL (0.1-1.2); Monocytes Percent Auto 19.4 % (2-11); Neutrophils Absolute Auto 3.2 X10*3/uL (2.0-8.3); Neutrophils Percent Auto 43.4 % (45-73); Platelet Count 215 X10*3/uL (160-400); Red Blood Count 4.76 X10*6/uL (4.60-5.80); Red Cell Distribution Width 15.5 % (11.0-16.0); White Blood Count 7.4 X10*3/uL (4.8-10.8)
[2020-08-05 06:48] LABS: Anion Gap 11 (12-20); Blood Urea Nitrogen 9 mg/dL (9-16); Calcium 9.4 mg/dL (8.4-10.2); Carbon Dioxide 33 mmol/L (22-29); Chloride 100 mmol/L (96-108); Creatinine Clr Calc Pharmacy 192.1; Estimated Glomerular Filt Rate > 60; Glucose Random 91 mg/dL (60-115); Magnesium 2.1 mg/dL (1.6-2.6); Phosphorus 3.8 mg/dL (2.7-4.5); Potassium 4.1 mmol/L (3.3-5.1); Sodium 140 mmol/L (135-145)
--- NOTE | 2020-08-05 10:32 | P.CONCA_ITS ---
History of Present Illness History of Present Illness Date of Service: 08/05/20 Requesting physician: Darrius Vazquez Chief complaint: alcohol intoxication Narrative: 39-year-old gentleman with alcoholism who presented with alcohol intoxication. He was diagnosed with delirium tremens and was in the intensive care unit. As per the chart review his was initially not in atrial fibrillation but while withdrawing from alcohol he developed AFib with RVR. Discussing with him he has history of atrial fibrillation and had an episode a year ago when he was drinking heavily. He said he was sober for 1 year but started drinking 2 weeks ago. He was drinking half a gal of vodka daily. He also has background of heroin abuse and is on Suboxone. Denies any other drug abuse. He is denying palpitations right now. He is saying he is less shaky and jittery. [facility] Past Medical History Medical History (Updated 08/01/20 @ 14:39 by Juan Kern MD) Alcohol abuse HTN (hypertension) Substance abuse Withdrawal seizures Family History Family History (Updated 07/30/20 @ 14:03 by Adama Springer MD) Other Alcoholism Social History Social History (Updated 02/15/20 @ 17:35 by Eileen Pepe DO) Household Members: Unknown / Unable to assess Housing: Other Housing Other:: [facility] Home Do you presently have visiting nurse or other home services: No Unable to assess alcohol history related to: Unable to respond Alcohol intake: current Alcohol intake frequency: 3 or more drinks per day Alcohol type: hard liquor Smoking Status: Current every day smoker Packs Per Day: 1 Cigarettes Per Day: 20.0 Use of substances other than those prescribed or required for medical reasons: Yes Substance Use Type: Heroin Substance Use Type Other:: per ER - takes suboxone Substance Use Frequency: Occasionally Last Used Substance: Just Prior to Admission Currently Displaying Signs/Symptoms of Drug Intoxication Withdrawal: No Have you been hit, kicked, punched, or otherwise hurt by someone within the past year? If so, by whom?: No Do you feel safe in your current relationship?: Yes Is there a partner from a previous relationship who is making you feel unsafe now?: No Are you made to feel afraid or neglected: No Spiritual Healthcare Practices: Unable to respond Mandaeism Healthcare Practices: Unable to respond Cultural Healthcare Practices: Unable to respond Advance Directives: No Advance Directives Information Provided: Yes Healthcare Proxy: No Guardian: No Current/Past Psychiatric Disorders: Alcohol abuse and Substance abuse Orta Symptoms: Anxiety and Global insomia Access to Firearms: No Do you have thoughts of harming others: None Do you have a plan to hurt others: No Plan Recently lost weight without trying: No Nutrition Risks: No Nutritional Risk Poor oral hygiene: No service: No Current occupational status: disabled Meds Allergies Allergy/AdvReac Type Severity Reaction Status Date / Time No Known Allergies Allergy Verified 07/29/20 20:19 [No Known Allergies*] Active Medications: Current Medications Generic Name Dose Route Start Last Admin Trade Name Freq PRN Reason Stop Dose Admin Acetaminophen 650 mg 08/01/20 18:07 08/04/20 18:18 Acetaminophen 325 Mg Tablet PO 650 mg Q6H PRN Administration Pain, Mild (Pain Scale 1-3) Buprenorphine/Naloxone 1 film 08/01/20 21:00 08/04/20 20:44 Buprenorphine/Naloxone 8/2 Mg Film SUBLINGUAL 1 film BID ANNMARIE Administration Bupropion HCl 300 mg 08/04/20 18:05 08/04/20 18:18 Bupropion Hcl Xl 300 Mg Tab.Er.24h PO 300 mg DAILY ANNMARIE Administration Clonidine HCl 0.2 mg 08/04/20 14:00 08/04/20 20:42 Clonidine Hcl 0.2 Mg Tablet PO 0.2 mg BID ANNMARIE Administration Protocol Diltiazem HCl 240 mg 08/04/20 09:00 08/04/20 09:18 Diltiazem Hcl Cd 240 Mg Cap.Er.Deg PO 240 mg DAILY ANNMARIE Administration Protocol Melatonin 6 mg 08/04/20 23:08 08/04/20 23:59 Melatonin 3 Mg Tablet PO 6 mg BEDTIME PRN Administration Insomnia Metoprolol Succinate 100 mg 08/03/20 09:00 08/04/20 07:48 Metoprolol Succinate Er 50 Mg Tab.Er.24h PO 100 mg DAILY ANNMARIE Administration Protocol Nicotine 21 mg 08/02/20 09:00 08/04/20 07:42 Nicotine 21 Mg Patch.Td24 TRANSDERMA 21 mg DAILY ANNMARIE Administration Ondansetron HCl 4 mg 07/31/20 18:56 08/04/20 06:27 Ondansetron Hcl 4 Mg/2 Ml Vial IVPUSH 4 mg Q6H PRN Administration Nausea Rivaroxaban 20 mg 08/04/20 09:00 08/04/20 09:17 Rivaroxaban 20 Mg Tablet PO 20 mg DAILY ANNMARIE Administration Thiamine HCl 300 mg 08/01/20 09:00 08/04/20 07:48 Thiamine Hcl 100 Mg Tablet PO 300 mg DAILY ANNMARIE Administration Home Medications Medication Instructions Recorded Confirmed Last Taken Type buprenorphine-naloxone [Suboxone] 2 film BUCCAL DAILY 02/15/20 07/30/20 Unknown History clonidine HCl 0.2 mg PO BID 02/15/20 07/30/20 07/18/20 10:00 History gabapentin 600 mg PO TID 02/15/20 07/30/20 07/18/20 History atorvastatin 20 mg PO BEDTIME 07/30/20 07/30/20 Unknown History bupropion HCl 300 mg PO QAM 07/30/20 07/30/20 Unknown History cholecalciferol (vitamin D3) 50 mcg PO DAILY 07/30/20 07/30/20 Unknown History metoprolol succinate 25 mg PO DAILY 07/30/20 07/30/20 Unknown History omeprazole 20 mg PO DAILY PRN 07/30/20 07/30/20 Unknown History sertraline [Zoloft] 150 mg PO DAILY 07/30/20 07/30/20 Unknown History vitamin B complex 1 tab PO DAILY 07/30/20 07/30/20 Unknown History Physical Exam Vital Signs: Vital Signs: Last Vital Signs Temp 97.1 F 08/05/20 07:26 Pulse 101 H 08/05/20 07:26 Resp 18 08/05/20 07:26 BP 138/98 H 08/05/20 07:26 Pulse Ox 94 08/05/20 07:26 Body Mass Index 38.5 GENERAL APPEARANCE: Anxious appearing. NECK: no carotid bruit, no jugular venous distention. SKIN: no suspicious lesions, warm and dry. HEART: no murmurs, irregular rate and rhythm. LUNGS: clear to auscultation bilaterally. ABDOMEN: soft, nontender. EXTREMITIES: no edema. PERIPHERAL PULSES: equal. NEUROLOGIC: No gross deficits, AAO X 3 Results Labs and Meds Result diagrams: 08/05/20 05:48 08/05/20 05:48 Lab results: Laboratory Results - last 24 hr 08/04/20 08/05/20 08/05/20 15:58 05:48 05:48 WBC 7.4 RBC 4.76 Hgb 14.3 Hct 43.6 MCV 91.6 MCH 30.0 MCHC 32.8 RDW 15.5 Plt Count 215 D MPV 9.6 Immature Gran % (Auto) 0.9 H Neut % (Auto) 43.4 L Lymph % (Auto) 33.6 [place] % (Auto) 19.4 H Eos % (Auto) 2.2 Baso % (Auto) 0.5 Lymph # (Auto) 2.5 [place] # (Auto) 1.4 H Eos # (Auto) 0.2 Baso # (Auto) 0.0 Abs Immat Gran (auto) 0.07 H Absolute Neuts (auto) 3.2 Absolute Nucleated RBC 0.000 Nucleated RBC % (auto) 0.0 Sodium 140 Potassium 4.1 Chloride 100 Carbon Dioxide 33 H Anion Gap 11 L BUN 9 Creatinine 0.73 Estim Creat Clear Calc 192.1 Estimated GFR > 60 POC Glucose 122 H Random Glucose 91 Calcium 9.4 D Phosphorus 3.8 Magnesium 2.1 Assessment and Plan (1) Afib: Status: Acute (2) Alcoholic intoxication: Status: Acute 39-year-old gentleman with alcoholism who is presenting for delirium tremens and AFib with RVR. He has been in the intensive care unit and has been downgraded. Heart rate control is okay right now. He is denying any palpitations. Was started on Xarelto by the ICU team. His chads Vasc score is 1 for hypertension. Also he has been in alcohol withdrawal so hard to know whether truly has hypertension or not. In any case right now his blood pressure is elevated. I think his Toprol-XL can be increased to 150 mg once a day. Continue the Cardizem 240 mg once a day. His echocardiogram was limited but overall the ejection fraction was normal. If he reverts back to sinus rhythm then Xarelto can be stopped. Also if his rate control continues to be good then Xarelto can be stopped. Only reason to continue Xarelto will be if in case he requires CARLA cardioversion. Thank you for allowing me to participate in the care of your patient. Please feel free to contact me if you have any questions.
[2020-08-05] MEDS: Nicotine 21 MG PATCH.TD24 TRANSDERMA (10:40)
[2020-08-05] MEDS: Metoprolol Succinate ER 50 MG TAB.ER.24H 100 MG PO (10:41)
[2020-08-05] MEDS: Thiamine HCL 100 MG TABLET 300 MG PO (10:41)
[2020-08-05] MEDS: Acetaminophen 325 MG TABLET 650 MG PO ×2 (10:42→21:30)
[2020-08-05] MEDS: Buprenorphine/Naloxone 8/2 mg FILM 1 FILM SUBLINGUAL ×2 (10:43→21:20)
[2020-08-05] MEDS: cloNIDine HCL 0.2 MG TABLET PO ×2 (10:43→21:20)
[2020-08-05] MEDS: buPROPion HCl XL 300 MG TAB.ER.24H PO (10:43)
[2020-08-05] MEDS: dilTIAZem HCL CD 240 MG CAP.ER.DEG PO (10:44)
[2020-08-05] MEDS: Rivaroxaban 20 MG TABLET PO (10:44)
--- NOTE | 2020-08-05 13:10 | HO.PM.IMPN ---
Subjective Subjective Date of Service: 08/21/20 Interval History: 39-year-old male with alcohol dependency who was admitted to the ICU on July 30 and with alcohol withdrawal/delirium tremens requiring multiple medications meds to contro, along with a atrial fibrillation with rapid ventricular response. He spent 5 days in the ICU and finally was controlled and was transferred to the medical floor on August 04 and he is still in atrial fibrillation but rate is controlled, he has been started on the Xarelto for stroke prevention he is highly likely to relapse going back to drinking. He is presently calm, cooperative, HR is controlled Review of Systems Gen: no fever Resp: no sob, no cough CV: no chest, no RODRIGUEZ, no leg edema GI: No n/v, no abd pain Neuro: No confusion Physical Exam Vital Signs: Vital Signs: Last Vital Signs Temp 97 F 08/05/20 11:30 Pulse 97 08/05/20 11:30 Resp 18 08/05/20 11:30 BP 140/93 H 08/05/20 11:30 Pulse Ox 95 08/05/20 11:30 Body Mass Index 38.5 Constitutional Awake and Alert, No apparent distress Neck Supple, No lymphadenopathy Cardiovascular iregular, iregular Respiratory Lungs clear, No respiratory distress Gastrointestinal Non tender, Non-distended Skin No rash Neurological Alert & oriented x3 Psychological Appropriate affect Objective Data Current Medications Generic Name Dose Route Start Last Admin Trade Name Freq PRN Reason Stop Dose Admin Acetaminophen 650 mg 08/01/20 18:07 08/05/20 10:42 Acetaminophen 325 Mg Tablet PO 650 mg Q6H PRN Administration Pain, Mild (Pain Scale 1-3) Buprenorphine/Naloxone 1 film 08/01/20 21:00 08/05/20 10:43 Buprenorphine/Naloxone 8/2 Mg Film SUBLINGUAL 1 film BID ANNMARIE Administration Bupropion HCl 300 mg 08/04/20 18:05 08/05/20 10:43 Bupropion Hcl Xl 300 Mg Tab.Er.24h PO 300 mg DAILY ANNMARIE Administration Clonidine HCl 0.2 mg 08/04/20 14:00 08/05/20 10:43 Clonidine Hcl 0.2 Mg Tablet PO 0.2 mg BID ANNMARIE Administration Protocol Diltiazem HCl 240 mg 08/04/20 09:00 08/05/20 10:44 Diltiazem Hcl Cd 240 Mg Cap.Er.Deg PO 240 mg DAILY ANNMARIE Administration Protocol Melatonin 6 mg 08/04/20 23:08 08/04/20 23:59 Melatonin 3 Mg Tablet PO 6 mg BEDTIME PRN Administration Insomnia Metoprolol Succinate 100 mg 08/03/20 09:00 08/05/20 10:41 Metoprolol Succinate Er 50 Mg Tab.Er.24h PO 100 mg DAILY ANNMARIE Administration Protocol Nicotine 21 mg 08/02/20 09:00 08/05/20 10:40 Nicotine 21 Mg Patch.Td24 TRANSDERMA 21 mg DAILY ANNMARIE Administration Ondansetron HCl 4 mg 07/31/20 18:56 08/04/20 06:27 Ondansetron Hcl 4 Mg/2 Ml Vial IVPUSH 4 mg Q6H PRN Administration Nausea Rivaroxaban 20 mg 08/04/20 09:00 08/05/20 10:44 Rivaroxaban 20 Mg Tablet PO 20 mg DAILY ANNMARIE Administration Thiamine HCl 300 mg 08/01/20 09:00 08/05/20 10:41 Thiamine Hcl 100 Mg Tablet PO 300 mg DAILY ANNMARIE Administration Labs CBC & Chem 7: 08/05/20 05:48 08/05/20 05:48 Assessment and Plan (1) Delirium tremens: Status: Resolved (2) Afib: Status: Acute Assessment and Plan: 39-year-old gentleman with underlying history of alcohol abuse with prior alcohol withdrawal seizures, polysubstance abuse, hypertension admitted on 07/30/2020 initially with alcohol intoxication further complicated by delirium tremens requiring initiation of sedative drips and AFib with RVR. Transferred to intensive care unit. 39-year-old gentleman admitted with delirium tremens, further complicated by AFib with RVR, initially requiring sedative drips in ICU Alcohol withdrawal/DTs--resolved. CARE team eval AFIB--he remains in AFIB but rate controlled, Echo 08/02 normal EF 55 to 60 continue rate controlle with Toprol xl 100 and Cardizem 240 Xarelto for now--but should not be on this disscharge unless cardioversion is planned Cardiology to comment on this Opioid dependence--Suboxone Depression/anxiety--Bupropion, clonidine, Sertraline all outpatient meds HLD hold lipitor for elevated lfts Neuropathy Gabapentin Weakness, PT eval tomorrow
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
[2020-08-05] MEDS: Melatonin 3 MG TABLET 6 MG PO (21:22)
[2020-08-05] MEDS: QUEtiapine Fumarate 50 MG TABLET PO (22:29)
[2020-08-06 03:32] VITALS: BP 100/61; PULSE 76; RESP 18; TEMP 36.6; O2SAT 96
[2020-08-06 07:16] VITALS: BP 103/77; PULSE 84; RESP 18; TEMP 36.4; O2SAT 96
[2020-08-06] MEDS: Acetaminophen 325 MG TABLET 650 MG PO (08:30)
[2020-08-06 08:31] VITALS: BP 141/95; PULSE 101
[2020-08-06] MEDS: Thiamine HCL 100 MG TABLET 300 MG PO (08:31)
[2020-08-06] MEDS: cloNIDine HCL 0.2 MG TABLET PO (08:31)
[2020-08-06] MEDS: dilTIAZem HCL CD 240 MG CAP.ER.DEG PO (08:31)
[2020-08-06] MEDS: buPROPion HCl XL 300 MG TAB.ER.24H PO (08:31)
[2020-08-06] MEDS: Rivaroxaban 20 MG TABLET PO (08:31)
[2020-08-06] MEDS: Buprenorphine/Naloxone 8/2 mg FILM 1 FILM SUBLINGUAL (08:32)
[2020-08-06] MEDS: Nicotine 21 MG PATCH.TD24 TRANSDERMA (08:32)
[2020-08-06] MEDS: Sertraline HCL 50 MG TABLET 150 MG PO (08:32)
[2020-08-06] MEDS: Metoprolol Succinate ER 50 MG TAB.ER.24H 100 MG PO (08:32)
[2020-08-06 09:26] VITALS: BP 141/95; PULSE 101
[2020-08-06 11:22] VITALS: BP 110/65; PULSE 90; RESP 17; TEMP 36.4; O2SAT 99
--- NOTE | 2020-08-06 11:36 | MHC.CM.PN ---
Per ROUNDS discussion, PT is recommending STR. R/T Patient's Substance abuse history and present use of Suboxone, only 2 SNF's in this area will consider. Referrals have been made to [facility] and [facility]. CM will follow.
--- NOTE | 2020-08-06 12:59 | MHC.CM.PN ---
Patient has been accepted at [facility] and [facility], but he has decided he wants to return home to his [facility] in [place]. Patient requested to be walked a little ways with RN just to be sure he feels confident about going home. Per RN and Patient, Patient did very well on the walk and Patient's Father is on his way to pick him up (MD aware). Second IMM addressed with Patient, providing him with the original and placing a copy on the chart.
--- NOTE | 2020-08-06 13:12 | P.PNCA_ITS ---
Subjective Subjective Date of Service: 08/06/20 <ARMANI Rizzo - Last Filed: 08/06/20 13:23> 08/06/20 <Serg Lang MD - Last Filed: 08/06/20 14:17> Principal diagnosis: PAF, alcohol withdrawal <ARMANI Rizzo - Last Filed: 08/06/20 13:23> Interval history: Cardiology follow up for afib. Seen at 0900. Today he reports feeling good. He believes he is through withdrawal. No sob, chest pains, dizziness. He can feel heart palpitations at times. No leg edema. Slept well. Hoping to go home soon. <ARMANI Rizzo - Last Filed: 08/06/20 13:23> Review of Systems Review of Systems as above <ARMANI Rizzo - Last Filed: 08/06/20 13:23> Yes all other systems are reviewed and are negative <ARMANI Rizzo - Last Filed: 08/06/20 13:23> Physical Exam Vital Signs: Last Vital Signs Temp 97.5 F 08/06/20 11:22 Pulse 90 08/06/20 11:22 Resp 17 08/06/20 11:22 BP 110/65 08/06/20 11:22 Pulse Ox 99 08/06/20 11:22 Body Mass Index 38.5 <ARMANI Rizzo - Last Filed: 08/06/20 13:23> Const General: cooperative, no acute distress, alert and awake <ARMANI Rizzo - Last Filed: 08/06/20 13:23> Orientation/consciousness: patient oriented x3 <ARMANI Rizzo - Last Filed: 08/06/20 13:23> Neck Neck: Yes normal visual inspection and Yes no JVD <ARMANI Rizzo Last Filed: 08/06/20 13:23> Resp Effort & Inspection: normal respiratory effort, able to speak in complete sentences and not labored <ARMANI Rizzo - Last Filed: 08/06/20 13:23> Auscultation: clear to auscultation bilaterally, no crackles, no rales, no rhonchi and no wheezes <LILIBETH Rizzo - Last Filed: 08/06/20 13:23> Cardio Other: heart tones irregularly irregular <LILIBETH Rizzo - Last Filed: 08/06/20 13:23> Jugular venous distension: JVD present <LILIBETH Rizzo - Last Filed: 08/06/20 13:23> Palpation: normal PMI <Tasha Hernandez NP - Last Filed: 08/06/20 13:23> Rate: regular rate <LILIBETH Rizzo - Last Filed: 08/06/20 13:23> Heart sounds: S1 normal heart sound present and S2 normal heart sound present <Tasha Hernandez NP - Last Filed: 08/06/20 13:23> Peripheral pulses: Peripheral pulses 2+ throughout <Tasha Hernandez NP - Last Filed: 08/06/20 13:23> GI Inspection: Yes normal to inspection <LILIBETH Rizzo - Last Filed: 08/06/20 13:23> Neuro General: patient oriented x3 <LILIBETH Rizzo - Last Filed: 08/06/20 13:23> Extrem General: Yes normal to inspection and No edema <LILIBETH Rizzo - Last Filed: 08/06/20 13:23> Results Labs and Meds Result diagrams: : 08/05/20 05:48 08/05/20 05:48 <LILIBETH Rizzo - Last Filed: 08/06/20 13:23> Progress Note: A&P Assessment and plan (1) Afib: Status: Acute <LILIBETH Rizzo - Last Filed: 08/06/20 13:23> Assessment and Plan: Hx of PAF. This admit with alcohol intoxication then withdrawal. Developed afib RVR which has been treated for rate control. Tele shows afib, rates 60-70s during sleep and up to 100 this am. Can feel heart palpitations at times. Echo shows technically difficult study, EF 55-60%, no significant valve abnormalities. He continues on Diltiazem CD 240mg and on Toprol xl 100mg daily. Will add additional Toprol xl 50mg in the PM for improved rate control. CHADVASc score of 1. He was started on Xarelto for anticoagulation. He has hx of alcohol use and describes binge drinking. He has been following with Dr Donaldson as outpt for his AF and was recently seen. From a cardiology perspective he may be discharged and he is to follow with Dr Donaldson as outpt. Continue Xarelto - outpt CVR may be needed. <ARMANI Rizzo - Last Filed: 08/06/20 13:23> Persistent atrial fibrillation at current time without any symptoms. Rate is borderline controlled. Discussed with patient about management of atrial fibrillation in details. Continue rate control approach and will increase Toprol-XL to 150 mg daily. Continue Cardizem CD. Follow up with his acute care occupational therapist in 4 weeks time. Would suggest a Holter monitor in 2 weeks time. Continue oral anticoagulation with Xarelto. If he remains in atrial fibrillation and should pursue rhythm control approach at that point in time. Avoidance of alcohol was discussed. Patient seen and examined and case discussed with Tasha Hernandez in details. <Serg Lang MD - Last Filed: 08/06/20 14:17> (2) Hypertension: Status: Acute <ARMANI Rizzo - Last Filed: 08/06/20 13:23> Assessment and Plan: Well controlled <ARMANI Rizzo - Last Filed: 08/06/20 13:23> (3) Alcohol withdrawal syndrome: Status: Acute <ARMANI Rizzo - Last Filed: 08/06/20 13:23> Assessment and Plan: Improved. <ARMANI Rizzo - Last Filed: 08/06/20 13:23> Fall Risk Details Current Medications: Current Medications Generic Name Dose Route Start Last Admin Trade Name Freq PRN Reason Stop Dose Admin Acetaminophen 650 mg 08/01/20 18:07 08/06/20 08:30 Acetaminophen 325 Mg Tablet PO 650 mg Q6H PRN Administration Pain, Mild (Pain Scale 1-3) Buprenorphine/Naloxone 1 film 08/01/20 21:00 08/06/20 08:32 Buprenorphine/Naloxone 8/2 Mg Film SUBLINGUAL 1 film BID ANNMARIE Administration Bupropion HCl 300 mg 08/04/20 18:05 08/06/20 08:31 Bupropion Hcl Xl 300 Mg Tab.Er.24h PO 300 mg DAILY ANNMARIE Administration Clonidine HCl 0.2 mg 08/04/20 14:00 08/06/20 08:31 Clonidine Hcl 0.2 Mg Tablet PO 0.2 mg BID ANNMARIE Administration Protocol Diltiazem HCl 240 mg 08/04/20 09:00 08/06/20 08:31 Diltiazem Hcl Cd 240 Mg Cap.Er.Deg PO 240 mg DAILY ANNMARIE Administration Protocol Melatonin 6 mg 08/04/20 23:08 08/05/20 21:22 Melatonin 3 Mg Tablet PO 6 mg BEDTIME PRN Administration Insomnia Metoprolol Succinate 100 mg 08/03/20 09:00 08/06/20 08:32 Metoprolol Succinate Er 50 Mg Tab.Er.24h PO 100 mg DAILY ANNMARIE Administration Protocol Nicotine 21 mg 08/02/20 09:00 08/06/20 08:32 Nicotine 21 Mg Patch.Td24 TRANSDERMA 21 mg DAILY ANNMARIE Administration Ondansetron HCl 4 mg 07/31/20 18:56 08/04/20 06:27 Ondansetron Hcl 4 Mg/2 Ml Vial IVPUSH 4 mg Q6H PRN Administration Nausea Quetiapine Fumarate 50 mg 08/05/20 21:53 08/05/20 22:29 Quetiapine Fumarate 50 Mg Tablet PO 50 mg BEDTIME PRN Administration Insomnia Rivaroxaban 20 mg 08/04/20 09:00 08/06/20 08:31 Rivaroxaban 20 Mg Tablet PO 20 mg DAILY ANNMARIE Administration Sertraline HCl 150 mg 08/06/20 09:00 08/06/20 08:32 Sertraline Hcl 50 Mg Tablet PO 150 mg DAILY ANNMARIE Administration Thiamine HCl 300 mg 08/01/20 09:00 08/06/20 08:31 Thiamine Hcl 100 Mg Tablet PO 300 mg DAILY ANNMARIE Administration <ARMANI Rizzo - Last Filed: 08/06/20 13:23> Time Spent With Patient Time: Total time spent is greater than 50% in coordination of care (as documented) at patient's floor/unit and/or counseling patient: 20 <ARMANI Rizzo - Last Filed: 08/06/20 13:23> Time with patient: 15 - 24 minutes <ARMANI Rizzo - Last Filed: 08/06/20 13:23> Procedures Date of Service Date of Service: 08/06/20 <ARMANI Rizzo - Last Filed: 08/06/20 13:23>
--- NOTE | 2020-08-06 13:27 | PC.NURSE ---
Ambulated in ames standby assist. Tolerated well. Ambulated approx 250 feet. Awaiting discharge
--- NOTE | 2020-08-06 13:44 | PM.DS ---
DS: Providers Provider Date of Service: 08/06/20 Date of admission: 07/30/20 16:10 Primary care physician: Unknown Physician Consults: 08/04/20 18:45 Consult to Cardiology Routine Consulting Provider: Scott Trores Reason for consultation: afib 08/05/20 13:29 Consult to Care Team Routine Comment: Reason for consultation: Alcohol dependence DS: Diagnosis Discharge Diagnosis (1) Afib: Status: Acute (2) Hypertension: Status: Acute (3) Alcohol withdrawal syndrome: Status: Acute DS: Medications Discharge Medications Home Medications: Home Medications Medication Instructions Recorded Confirmed buprenorphine-naloxone [Suboxone] 2 film BUCCAL DAILY 02/15/20 07/30/20 clonidine HCl 0.2 mg PO BID 02/15/20 07/30/20 gabapentin 600 mg PO TID 02/15/20 07/30/20 atorvastatin 20 mg PO BEDTIME 07/30/20 07/30/20 bupropion HCl 300 mg PO QAM 07/30/20 07/30/20 cholecalciferol (vitamin D3) 50 mcg PO DAILY 07/30/20 07/30/20 omeprazole 20 mg PO DAILY PRN 07/30/20 07/30/20 sertraline [Zoloft] 150 mg PO DAILY 07/30/20 07/30/20 vitamin B complex 1 tab PO DAILY 07/30/20 07/30/20 prazosin See Rx Instructions .ROUTE .COMPLEX 08/05/20 08/05/20 quetiapine [Seroquel] 50 mg PO BEDTIME PRN 08/05/20 08/05/20 Previous Rx's Medication Instructions Recorded diltiazem HCl 240 mg PO DAILY #30 cap 08/06/20 metoprolol succinate 100 mg PO DAILY #30 tab 08/06/20 nicotine 21 mg TRANSDERMAL DAILY #21 ea 08/06/20 DS: Summary Hospital Course Hospital Course: History of presenting illness ETOH withdrawal This is a 39 year old male with a past medical history of alcohol withdrawal seizures, polysubstance abuse, and hypertension presented to the ED via EMS for alcohol intoxication and auditory hallucinations. The patient was initially supposed to be a section 12 and was a bed search, but he began exhibiting symptoms of alcohol withdrawal. He was initially hemodynamically stable, but he began exhibiting alcohol withdrawal symptoms and tachycardia. He was given multiple IV / oral benzodiazepines without much improvement and so the decision was made to start him on phenobarbital per protocol. He was found to be in A. Fib with RVR, with rates going up the 150-160s range. He was given IV cardizem without much improvement and subsequently started on IV cardizem wih rates slowly down to the 130s. He continue to require multiple medications for alcohol withdrawal symptoms. Subsequently requiring Precedex drip and admission into the ICU. Hospital course 39-year-old gentleman with underlying history of alcohol abuse with prior alcohol withdrawal seizures, polysubstance abuse, hypertension admitted on 07/30/2020 initially with alcohol intoxication further complicated by delirium tremens requiring initiation of sedative drips and AFib with RVR and was treated at intensive care unit. Patient admitted with Alcohol withdrawal/DTs, treated with phenobarb protocol start time and IV sedatives patient responded to above treatment, currently has no tremors speech is clear, Patient was seen by Physical therapy and they recommended short-term rehab however patient declined therefore being discharged to sober house patient has been strongly recommended to abstain from alcohol Atrial fibrillation with RVR patient was initially treated with IV Cardizem now transition to by mouth Cardizem and metoprolol,Echo 08/02 showed normal EF 55 to 60, will discharge home on Toprol xl 100 mg and Cardizem 240 mg daily patient is not being discharged home on Xarelto due to alcohol use, recommend outpatient cardiology follow-up Will continue Suboxone for Opioid dependence Depression/anxiety will continue home medication Hyperlipidemia will resume statins, LFTs trended down. Time Spent with Patient Time attestation: Total time spent providing and/or coordinating discharge services: Discharge coordination time: Greater than 30 minutes Quality: Stroke Does the patient have a stroke diagnosis?: No Physical Exam Vital Signs: Vital Signs: Last Vital Signs Temp 97.5 F 08/06/20 11:22 Pulse 90 08/06/20 11:22 Resp 17 08/06/20 11:22 BP 110/65 08/06/20 11:22 Pulse Ox 99 08/06/20 11:22 Body Mass Index 38.5 General resting comfortably no acute distress. Neck supple no JVD. CVS irregular rate rhythm, Respiratory lungs clear to auscultation, no respiratory distress, no wheeze, no rhonchi. Gastrointestinal abdomen soft, nontender, bowel sounds audible, no guarding , no rigidity. Extremities no edema. Neuro nonfocal , no tremors, speech clear. Skin no rash Discharge Plan Discharge Patient Disposition: Home, Self-Care Discharge Diagnosis: Alcohol withdrawal with DTs Atrial fibrillation with rapid ventricular response Opioid dependence Referrals: Physician,Unknown [Primary Care Provider] - 1 Week Discharge Medications: New metoprolol succinate 50 mg Tablet Extended Release 24 Hr 100 mg PO DAILY Qty: 30 RF: 0 diltiazem HCl 240 mg Capsule,Extended Release 24hr 240 mg PO DAILY Qty: 30 RF: 0 nicotine 21 mg/24 hr Patch 24 Hour 21 mg transdermal DAILY Qty: 21 RF: 0 Continued gabapentin 600 mg Tablet 600 mg PO TID RF: 0 clonidine HCl 0.2 mg Tablet 0.2 mg PO BID RF: 0 buprenorphine-naloxone [Suboxone] 8-2 mg Film 2 film BUCCAL DAILY RF: 0 atorvastatin 20 mg Tablet 20 mg PO BEDTIME RF: 0 sertraline [Zoloft] 100 mg Tablet 150 mg PO DAILY RF: 0 omeprazole 20 mg Capsule,Delayed Release(Dr/Ec) 20 mg PO DAILY PRN (Reason: Acid Reflux) RF: 0 vitamin B complex Tablet 1 tab PO DAILY RF: 0 bupropion HCl 300 mg Tablet Extended Release 24 Hr 300 mg PO QAM RF: 0 cholecalciferol (vitamin D3) 50 mcg (2,000 unit) Tablet 50 mcg PO DAILY RF: 0 quetiapine [Seroquel] 50 mg Tablet 50 mg PO BEDTIME PRN (Reason: Insomnia) RF: 0 prazosin 1 mg Capsule See Rx Instructions .ROUTE .COMPLEX RF: 0 Discontinued metoprolol succinate 25 mg Tablet Extended Release 24 Hr 25 mg PO DAILY RF: 0 Discharge Orders: Discharge Order (Routine); Ordered 08/06/20 Ordered By: Kim Lagos Diet: low fat, low cholesterol Activity on Discharge: As tolerated Stand Alone Forms: Patient Portal Discharge page Care Plan Goals: Strongly advice to abstain from alcohol, return back to sober house Health Concerns: Alcohol use, atrial fibrillation continue daily walking Plan of Treatment: Outpatient follow up with PCP and Cardiology Assessment: See discharge
== END 2020-08-06 14:03 | disposition home or self-care (01) | DRG 308 ==
LOC: HO.ED 07-30 12:40 → HO.EDOVER 07-30 16:17 → HO.ICU 07-30 19:13 → HO.IMC 08-04 20:51
PROVIDERS: Family Medicine; Physician Assistant Medical; Registered Nurse Community Health; Admitting Provider Internal Medicine Pulmonary Disease; Emergency Provider Emergency Medicine; Visit Provider Hospitalist
DX: I48.91 Unspecified atrial fibrillation (principal); G93.41 Metabolic encephalopathy; F10.231 Alcohol dependence with withdrawal delirium; R45.851 Suicidal ideations; F11.20 Opioid dependence, uncomplicated; I10 Essential (primary) hypertension; D69.6 Thrombocytopenia, unspecified; F32.9 Major depressive disorder, single episode, unspecified; F41.9 Anxiety disorder, unspecified; E78.5 Hyperlipidemia, unspecified; G62.9 Polyneuropathy, unspecified; Z20.822 Contact with and (suspected) exposure to COVID-19; Z79.899 Other long term (current) drug therapy
CPT/HCPCS: 36415; 71045; 80048; 80053; 80307; 80320; 82040; 82140; 82947; 83735; 83880; 84100; 85025; 85610; 85730; 87635; 93005; 93306; 96365; 96366; 96372; 96375; 97162; 99285; J1200; J2060; J2405; J2560; J2765; J3411; J3475

== ENCOUNTER 2020-10-30 05:51 | Emergency (ER) | payer MEDICAID, MEDICARE, SELFPAY ==
--- NOTE | ~2020-10-30 | XR_ITS ---
EXAMINATION: XR CHEST CLINICAL INFORMATION: Chest pain COMPARISON: 07/30/2020 TECHNIQUE: Frontal view of the chest was obtained. FINDINGS: Surgical clips at the left apex. Bullous disease of the upper lungs. No consolidation, edema, or effusion. No pneumothorax. The cardiomediastinal silhouette is within normal limits. XR/XR chest 1V IMPRESSION: No acute finding. Bullous changes of the upper lungs.
[2020-10-30 05:54] VITALS: BP 108/78; PULSE 114; RESP 18; TEMP 36.6; O2SAT 98; BMI 33.0
--- NOTE | 2020-10-30 06:06 | ECG_ITS ---
Test Reason : CHEST PAIN Blood Pressure : / mmHG Vent. Rate : 111 BPM Atrial Rate : 111 BPM P-R Int : 160 ms QRS Dur : 096 ms QT Int : 354 ms P-R-T Axes : 061 050 065 degrees QTc Int : 481 ms Sinus tachycardia Possible Left atrial enlargement Borderline ECG When compared with ECG of 30-JUL-2020 12:40, Sinus rhythm has replaced Atrial fibrillation Referred By: Generic ED Physician Electronically Signed By:GIANCARLO FUNES MD
[2020-10-30 07:06] LABS: MANUAL DIFF FLAG NO
[2020-10-30 07:16] LABS: Basophils Absolute Auto 0.1 X10*3/uL (0.0-0.2); Eosinophils Absolute Auto 0.1 X10*3/uL (0.0-0.4); Eosinophils Percent Auto 0.7 % (0-4); Hematocrit 50.4 % (42-52); Hemoglobin 17.5 g/dl (14.0-18.0); Imm Gran Abs Auto 0.05 X10*3/uL (0.00-0.03); Imm Gran Pct Auto 0.5 % (0.0-0.4); Lymphocytes Absolute Auto 2.7 X10*3/uL (1.2-4.9); Lymphocytes Percent Auto 27.9 % (20-40); Mean Corpuscular HGB Conc 34.7 g/dl (31.0-36.0); Mean Corpuscular Hemoglobin 31.9 pg (27.0-33.0); Mean Corpuscular Volume 91.8 fL (80-98); Mean Platelet Volume 9.3 fL (9.4-12.4); Monocytes Absolute Auto 1.1 X10*3/uL (0.1-1.2); Monocytes Percent Auto 11.2 % (2-11); Neutrophils Absolute Auto 5.7 X10*3/uL (2.0-8.3); Neutrophils Percent Auto 58.7 % (45-73); Platelet Count 380 X10*3/uL (160-400); Red Blood Count 5.49 X10*6/uL (4.60-5.80); Red Cell Distribution Width 14.1 % (11.0-16.0); White Blood Count 9.7 X10*3/uL (4.8-10.8)
[2020-10-30 07:35] LABS: Ethanol 288 mg/dL
[2020-10-30 07:38] LABS: Anion Gap 25 (12-20); Blood Urea Nitrogen 7 mg/dL (9-16); Carbon Dioxide 20 mmol/L (22-29); Chloride 98 mmol/L (96-108); Creatinine Clr Calc Pharmacy 154.5; Estimated Glomerular Filt Rate > 60; Glucose Random 92 mg/dL (60-115); Potassium 4.2 mmol/L (3.3-5.1); Sodium 139 mmol/L (135-145)
[2020-10-30 07:41] LABS: Troponin-I High Sensitivity 33.7 ng/L (<3.5-35.0)
[2020-10-30] MEDS: Acetaminophen 325 MG TABLET 650 MG PO (08:56)
[2020-10-30 09:15] VITALS: BP 120/87; PULSE 115; RESP 18; O2SAT 98
--- NOTE | 2020-10-30 09:33 | ED_ITS ---
HPI - Chest Pain General Chief Complaint: Chest Pain Stated Complaint: ETOH/CP Time Seen by Provider: 10/30/20 09:33 Source: patient Mode of arrival: EMS Limitations: no limitations History of Present Illness HPI narrative: 40-year-old male who presents emergency department for evaluation of chest pain. The patient states that he woke up at 1:00 a.m. with pain in the center of his chest. He describes it as a heaviness is of someone stepping on his chest. He states that the pain is constant but waxes and wanes in intensity. The pain is 6/10 at its worst. The pain is worse with breathing and with movement. Pain is also worse he presses on his chest. The patient states that he was admitted to [facility] 2 months prior and he was diagnosed with a heart attack, COPD and atrial fibrillation. He states that he spent 10 days in the hospital secondary to his heart attack. He states that he was started on medications when he was discharged from [facility] the stop taking these medications and he also stop taking his Suboxone. He states that he has has a chronic cough secondary to his smoking. He denied fever, chills, dyspnea on exertion. He denies pain that radiates to his neck, jaw or back. Denies lightheadedness. He states that over the past month however he has been feeling off balance. The patient states that he was drinking alcohol daily. He states that he drinks 18 beers per day and 1 pt of vodka per day. He states that he did drink prior to coming to the emergency department. 1207: I did obtain a discharge summary from [facility] dated 09/11/2020. Discharge diagnosis was cardiac arrest with return of spontaneous rhythm secondary to torsades caused by hypokalemia and hypomagnesemia causing prolonged QTC. Patient also had the diagnosis of alcohol withdrawal, extensive bullous emphysema (seen on CT scan of the chest) substance use disorder. In r eviewing the record, the patient did not have a cardiac catheterization. He was found to have global hypokinesis on a CARLA which was felt to be an atypical stress cardiomyopathy and a non coronary territory. Patient's EF was 35-40%. Related Data Home Medications Medication Instructions Recorded Confirmed buprenorphine 8 mg-naloxone 2 mg 2 film BUCCAL DAILY 02/15/20 07/30/20 sublingual film (Suboxone) clonidine HCl 0.2 mg tablet 0.2 mg PO BID 02/15/20 07/30/20 gabapentin 600 mg tablet 600 mg PO TID 02/15/20 07/30/20 atorvastatin 20 mg tablet 20 mg PO BEDTIME 07/30/20 07/30/20 bupropion HCl 300 mg 24 hr tablet, 300 mg PO QAM 07/30/20 07/30/20 extended release cholecalciferol (vitamin D3) 50 50 mcg PO DAILY 07/30/20 07/30/20 mcg (2,000 unit) tablet omeprazole 20 mg capsule,delayed 20 mg PO DAILY PRN 07/30/20 07/30/20 release sertraline 100 mg tablet (Zoloft) 150 mg PO DAILY 07/30/20 07/30/20 vitamin B complex 1 tab PO DAILY 07/30/20 07/30/20 prazosin 1 mg capsule See Rx Instructions .ROUTE .COMPLEX 08/05/20 08/05/20 quetiapine 50 mg tablet (Seroquel) 50 mg PO BEDTIME PRN 08/05/20 08/05/20 Previous Rx's Medication Instructions Recorded diltiazem HCl 240 mg 240 mg PO DAILY #30 cap 08/06/20 capsule,extended release 24 hr metoprolol succinate 50 mg 100 mg PO DAILY #30 tab 08/06/20 tablet,extended release 24 hr nicotine 21 mg/24 hr daily 21 mg TRANSDERMAL DAILY #21 ea 08/06/20 transdermal patch Allergies Allergy/AdvReac Type Severity Reaction Status Date / Time No Known Allergies Allergy Verified 07/29/20 20:19 [No Known Allergies*] Review of Systems Review of Systems: Yes all other systems are reviewed and are negative [facility] Past Medical History [facility] Narrative: Past medical history: Myocardial infarction 2 months prior, atrial fibrillation, COPD. Surgical history: Patient states that he had lung surgery secondary to a collapsed lung when he was an adolescent. Social history: The patient smokes 1 pack of cigarettes per day times 30 years. He drinks alcohol daily, he drinks an 18 pack of beer and 1 pt of alcohol. The patient does have a history of opiate abuse, he states that he has not used in 2 months, he was on Suboxone but stop taking this medication 2 months prior. Medical History (Updated 10/30/20 @ 15:11 by Harry Haney MD) Alcohol abuse HTN (hypertension) Hypertension Substance abuse Withdrawal seizures Family History Family History (Updated 07/30/20 @ 14:03 by Adama Springer MD) Other Alcoholism Social History Social History (Updated 02/15/20 @ 17:35 by Eileen Pepe DO) Household Members: Unknown / Unable to assess Housing: Other Housing Other:: [facility] Living Home Do you presently have visiting nurse or other home services: No Unable to assess alcohol history related to: Unable to respond Alcohol intake: current Alcohol intake frequency: 3 or more drinks per day Alcohol type: beer and hard liquor Patient Tobacco Use Status: Current everyday Tobacco user Cigarette Packs Per Day: 1 Cigarettes Per Day: 20.0 Use of substances other than those prescribed or required for medical reasons: Yes Substance Use Type: Marijuana Substance Use Frequency: Occasionally Advance Directives: No Advance Directives Information Provided: No service: No Current occupational status: disabled Physical Exam Vital Signs: Vital Signs: Last Vital Signs Temp 97.9 F 10/30/20 05:54 Pulse 117 H 10/30/20 14:40 Resp 18 10/30/20 14:40 BP 135/85 10/30/20 14:40 Pulse Ox 98 10/30/20 14:40 Body Mass Index 33.0 Const: General: cooperative and no acute distress Orientation/consciousness: oriented to person and oriented to place Limitations: no limitations HENMT: Head: Yes normal to inspection, Yes normocephalic and Yes atraumatic Ears: external ears normal General nose exam: Normal external nose present Face and sinus: Yes normal facial exam Mouth: Normal oral and palatal mucosa present Throat: Yes posterior oropharynx normal Eyes: General: appearance normal, both eyes and all related structures Pupils: Equal, round and reactive pupils present Neck: Neck: Yes normal visual inspection, Yes no lymphadenopathy, Yes trachea midline and Yes supple Chest: Chest palpation & inspection: normal inspection of the chest and tenderness (Bilateral anterior chest, moderate tenderness) Resp: Effort & Inspection: normal respiratory effort and able to speak in complete sentences Auscultation: clear to auscultation bilaterally Cardio: Rate: regular rate Rhythm: regular rhythm Heart sounds: S1 normal heart sound present, S2 normal heart sound present and Murmur heart sound present systolic holo and III/ GI: Inspection: Yes normal to inspection Palpation (GI): Soft to palpation, nontender and no guarding Auscultation: normal bowel sounds : General: Yes no CVA tenderness Back/Spine/Pelvis: Back: no CVA tenderness Skin: General skin exam: no rashes or lesions noted Neuro: General: oriented to person and oriented to place Cranial nerves: Yes CN's II-XII intact bilaterally and Yes Equal, round and reactive pupils present Cognition (Neuro): normal cognition Motor exam (neuro): 5/5 motor strength present throughout Extrem: General: Yes normal to inspection Psych: Appearance: grossly normal Speech and movement: Normal speech and movement present Affect: normal affect Attitude: cooperative Thought process: Normal thought process present Thought content: Normal thought content present Course Course Course Narrative: 40-year-old male who presents emergency department for evaluation of chest pain that woke him from sleep at 1:00 a.m.. The patient reports having a recent heart attack 2 months prior and spending 10 days at [facility]. Cannot recount details of his evaluation therefore I will try to obtain a record from [facility]. Vital signs revealed tachycardia with a pulse of 114 otherwise unremarkable. Physical examination did reveal anterior chest wall tenderness otherwise was unremarkable. 1006: Laboratory evaluation revealed an a detectable but not elevated troponin at 33.7. Patient's alcohol level was elevated 288. I am concerned this patient may withdraw from alcohol therefore he is ordered to get Ativan 2 mg IV. A 3 hour troponin will be repeated at 10:00 a.m.. Urinalysis and urine tox screen will also be obtained. Twelve EKG revealed a sinus tachycardia with no significant ST 7 elevation or depression. 1211: Repeat EKG revealed no significant change from the 1st EKG. Repeat 3 hour high sensitivity troponin was 39.3 which did not reflect the greater than 50% increase in troponin suggesting that his chest pain is not secondary to myocardial injury. At this time, I suspect the patient's pain is secondary to chest wall/muscle pain specially given his anterior chest tenderness. The patient is drinking a large amount of alcohol, he continues to smoke cigarettes and he has stopped all of his cardiac medications as prescribed his [facility] doctors at the time of discharge from his cardiac arrest. I did discuss these problems with the patient and with the patient's father. The patient is requesting detox from alcohol. According to father, the patient has been in multiple detox programs and multiple intermediate houses for substance abuse and alcohol abuse but has not achieved any significant period of sobriety. I will ask our coach driver to talk to the patient about getting into detox program. The patient was given a 2nd dose of Ativan 2 mg orally. 1507: The patient was given another dose of Ativan 2 mg orally. At this time, there are no male detox beds available. The patient will be discharged home and given a list of outpatient detox facilities that he can contact. The patient was given verbal and printed instructions prior to discharge. The patient was advised to follow-up with his PCP in 2 days and to return to the emergency department if his symptoms get worse or if he develops any new symptoms that are concerning to him. MDM - Chest Pain Lab Data Result diagrams: 10/30/20 06:57 10/30/20 06:57 Labs: Lab Results 10/30/20 10/30/20 10/30/20 Range/Units 06:57 06:57 06:57 WBC 9.7 (4.8-10.8) X10*3/uL RBC 5.49 (4.60-5.80) X10*6/uL Hgb 17.5 D (14.0-18.0) g/dl Hct 50.4 (42-52) % MCV 91.8 (80-98) fL MCH 31.9 (27.0-33.0) pg MCHC 34.7 (31.0-36.0) g/dl RDW 14.1 (11.0-16.0) % Plt Count 380 D (160-400) X10*3/uL MPV 9.3 L (9.4-12.4) fL Immature Gran % (Auto) 0.5 H (0.0-0.4) % Neut % (Auto) 58.7 (45-73) % Lymph % (Auto) 27.9 (20-40) % Grand % (Auto) 11.2 H (2-11) % Eos % (Auto) 0.7 (0-4) % Baso % (Auto) 1.0 (0-2) % Lymph # (Auto) 2.7 (1.2-4.9) X10*3/uL Grand # (Auto) 1.1 (0.1-1.2) X10*3/uL Eos # (Auto) 0.1 (0.0-0.4) X10*3/uL Baso # (Auto) 0.1 (0.0-0.2) X10*3/uL Abs Immat Gran (auto) 0.05 H (0.00-0.03) X10*3/uL Absolute Neuts (auto) 5.7 (2.0-8.3) X10*3/uL Absolute Nucleated RBC 0.000 (0.0-0.012) X10*3/uL Nucleated RBC % (auto) 0.0 (0.0-0.2) /100WBC Sodium 139 (135-145) mmol/L Potassium 4.2 (3.3-5.1) mmol/L Chloride 98 (96-108) mmol/L Carbon Dioxide 20 L (22-29) mmol/L Anion Gap 25 H (12-20) BUN 7 L (9-16) mg/dL Creatinine 0.83 (0.5-1.4) mg/dL Estim Creat Clear Calc 154.5 Estimated GFR > 60 Random Glucose 92 (60-115) mg/dL Calcium 9.0 (8.4-10.2) mg/dL Troponin I High Sens 33.7 (<3.5-35.0) ng/L Urine Color Urine Appearance Urine pH (5.0-8.0) Ur Specific [place] (1.005-1.025) Urine Protein (NEG-TRACE) MG/DL Urine Glucose (UA) (NEG) MG/DL Urine Ketones (NEG) MG/DL Urine Blood (NEG) Urine Nitrite (NEG) Ur Leukocyte Esterase (NEG) Urine Opiates Screen (Not Detect) Ur Barbiturates Screen (Not Detect) Ur Phencyclidine Scrn (Not Detect) Ur Amphetamines Screen (Not Detect) U Benzodiazepines Scrn (Not Detect) Urine Cocaine Screen (Not Detect) U Marijuana (THC) Screen (Not Detect) Ethyl Alcohol mg/dL 10/30/20 10/30/20 10/30/20 Range/Units 06:57 10:07 11:46 WBC (4.8-10.8) X10*3/uL RBC (4.60-5.80) X10*6/uL Hgb (14.0-18.0) g/dl Hct (42-52) % MCV (80-98) fL MCH (27.0-33.0) pg MCHC (31.0-36.0) g/dl RDW (11.0-16.0) % Plt Count (160-400) X10*3/uL MPV (9.4-12.4) fL Immature Gran % (Auto) (0.0-0.4) % Neut % (Auto) (45-73) % Lymph % (Auto) (20-40) % Grand % (Auto) (2-11) % Eos % (Auto) (0-4) % Baso % (Auto) (0-2) % Lymph # (Auto) (1.2-4.9) X10*3/uL Grand # (Auto) (0.1-1.2) X10*3/uL Eos # (Auto) (0.0-0.4) X10*3/uL Baso # (Auto) (0.0-0.2) X10*3/uL Abs Immat Gran (auto) (0.00-0.03) X10*3/uL Absolute Neuts (auto) (2.0-8.3) X10*3/uL Absolute Nucleated RBC (0.0-0.012) X10*3/uL Nucleated RBC % (auto) (0.0-0.2) /100WBC Sodium (135-145) mmol/L Potassium (3.3-5.1) mmol/L Chloride (96-108) mmol/L Carbon Dioxide (22-29) mmol/L Anion Gap (12-20) BUN (9-16) mg/dL Creatinine (0.5-1.4) mg/dL Estim Creat Clear Calc Estimated GFR Random Glucose (60-115) mg/dL Calcium (8.4-10.2) mg/dL Troponin I High Sens 39.3 H* (<3.5-35.0) ng/L Urine Color YELLOW Urine Appearance CLEAR Urine pH 6.0 (5.0-8.0) Ur Specific [place] 1.015 (1.005-1.025) Urine Protein NEG (NEG-TRACE) MG/DL Urine Glucose (UA) NEG (NEG) MG/DL Urine Ketones 5 (NEG) MG/DL Urine Blood NEG (NEG) Urine Nitrite NEG (NEG) Ur Leukocyte Esterase NEG (NEG) Urine Opiates Screen (Not Detect) Ur Barbiturates Screen (Not Detect) Ur Phencyclidine Scrn (Not Detect) Ur Amphetamines Screen (Not Detect) U Benzodiazepines Scrn (Not Detect) Urine Cocaine Screen (Not Detect) U Marijuana (THC) Screen (Not Detect) Ethyl Alcohol 288 mg/dL 10/30/20 Range/Units 11:46 WBC (4.8-10.8) X10*3/uL RBC (4.60-5.80) X10*6/uL Hgb (14.0-18.0) g/dl Hct (42-52) % MCV (80-98) fL MCH (27.0-33.0) pg MCHC (31.0-36.0) g/dl RDW (11.0-16.0) % Plt Count (160-400) X10*3/uL MPV (9.4-12.4) fL Immature Gran % (Auto) (0.0-0.4) % Neut % (Auto) (45-73) % Lymph % (Auto) (20-40) % Grand % (Auto) (2-11) % Eos % (Auto) (0-4) % Baso % (Auto) (0-2) % Lymph # (Auto) (1.2-4.9) X10*3/uL Grand # (Auto) (0.1-1.2) X10*3/uL Eos # (Auto) (0.0-0.4) X10*3/uL Baso # (Auto) (0.0-0.2) X10*3/uL Abs Immat Gran (auto) (0.00-0.03) X10*3/uL Absolute Neuts (auto) (2.0-8.3) X10*3/uL Absolute Nucleated RBC (0.0-0.012) X10*3/uL Nucleated RBC % (auto) (0.0-0.2) /100WBC Sodium (135-145) mmol/L Potassium (3.3-5.1) mmol/L Chloride (96-108) mmol/L Carbon Dioxide (22-29) mmol/L Anion Gap (12-20) BUN (9-16) mg/dL Creatinine (0.5-1.4) mg/dL Estim Creat Clear Calc Estimated GFR Random Glucose (60-115) mg/dL Calcium (8.4-10.2) mg/dL Troponin I High Sens (<3.5-35.0) ng/L Urine Color Urine Appearance Urine pH (5.0-8.0) Ur Specific [place] (1.005-1.025) Urine Protein (NEG-TRACE) MG/DL Urine Glucose (UA) (NEG) MG/DL Urine Ketones (NEG) MG/DL Urine Blood (NEG) Urine Nitrite (NEG) Ur Leukocyte Esterase (NEG) Urine Opiates Screen Not Detected (Not Detect) Ur Barbiturates Screen Not Detected (Not Detect) Ur Phencyclidine Scrn Not Detected (Not Detect) Ur Amphetamines Screen Not Detected (Not Detect) U Benzodiazepines Scrn Not Detected (Not Detect) Urine Cocaine Screen Not Detected (Not Detect) U Marijuana (THC) Screen Not Detected (Not Detect) Ethyl Alcohol mg/dL ECG Data ECG #1: Attestation: I personally reviewed and interpreted this ECG as follows: Interpretation: 0602: Sinus tachycardia with rate of 111, normal KS, QRS intervals, prolonged QTC interval of 481 milliseconds, no ST segment elevation, no ST segment depression, no PACs, no PVCs, no T-wave abnormalities. ECG #2: Attestation: I personally reviewed and interpreted this ECG as follows: Interpretation: 1021: Sinus tachycardia with a rate of 117, normal [place] interval, QRS interval and QTC interval, no ST segment elevation, no ST segment depression, no PACs, no PVCs, no T-wave abnormalities. Q-wave noted in V1. No significant change compared to EKG 1. Discharge Plan Discharge Clinical Impression: Alcohol use disorder Chest pain Qualifiers: Chest pain type: other chest pain Qualified Code(s): R07.89 - Other chest pain Patient Disposition: Home, Self-Care Instructions: Chest Wall Pain (ED), Alcohol Use Disorder (ED) Additional Instructions: Your laboratory evaluation was unremarkable. Your initial high sensitive troponin was detectable but not elevated, the repeat 3 hour troponin did not increased by 50% suggesting that your chest pain is not secondary to a heart attack (myocardial injury). You need to get into a detox facility to help with your alcohol use disorder. Call the detox facilities on the list that we gave you every day until you get accepted to a detox program. Follow-up with your doctor in 2 days. Please return to the emergency department if your symptoms get worse or if you develop any symptoms that are concerning to you. Prescriptions: No Action gabapentin 600 mg Tablet 600 mg PO TID RF: 0 clonidine HCl 0.2 mg Tablet 0.2 mg PO BID RF: 0 buprenorphine-naloxone [Suboxone] 8-2 mg Film 2 film BUCCAL DAILY RF: 0 atorvastatin 20 mg Tablet 20 mg PO BEDTIME RF: 0 sertraline [Zoloft] 100 mg Tablet 150 mg PO DAILY RF: 0 omeprazole 20 mg Capsule,Delayed Release(Dr/Ec) 20 mg PO DAILY PRN (Reason: Acid Reflux) RF: 0 vitamin B complex Tablet 1 tab PO DAILY RF: 0 bupropion HCl 300 mg Tablet Extended Release 24 Hr 300 mg PO QAM RF: 0 cholecalciferol (vitamin D3) 50 mcg (2,000 unit) Tablet 50 mcg PO DAILY RF: 0 quetiapine [Seroquel] 50 mg Tablet 50 mg PO BEDTIME PRN (Reason: Insomnia) RF: 0 prazosin 1 mg Capsule See Rx Instructions .ROUTE .COMPLEX RF: 0 metoprolol succinate 50 mg Tablet Extended Release 24 Hr 100 mg PO DAILY Qty: 30 RF: 0 diltiazem HCl 240 mg Capsule,Extended Release 24hr 240 mg PO DAILY Qty: 30 RF: 0 nicotine 21 mg/24 hr Patch 24 Hour 21 mg transdermal DAILY Qty: 21 RF: 0
[2020-10-30 09:47] VITALS: PULSE 115
[2020-10-30] MEDS: LORazepam 2 MG/ML VIAL IVPUSH (10:00)
--- NOTE | 2020-10-30 10:01 | ECG_ITS ---
Test Reason : CHEST PAIN Blood Pressure : / mmHG Vent. Rate : 117 BPM Atrial Rate : 117 BPM P-R Int : 116 ms QRS Dur : 086 ms QT Int : 336 ms P-R-T Axes : 027 040 046 degrees QTc Int : 468 ms Sinus tachycardia Possible Left atrial enlargement Borderline ECG When compared with ECG of 30-OCT-2020 06:02, No significant change was found Referred By: Harry Haney Electronically Signed By:GIANCARLO FUNES MD
--- NOTE | 2020-10-30 10:06 | PC.NURSE ---
Other staff member thought they overheard that brother brought pt 3 nips of alcohol. Pt confronted about this and stated that this was not true. Pt cooperative and did stand so bed sould be searched. No alcohol found in bed or in bedding. Pt educated on the risk of getting ativan while drinking alcohol. He understands these risks. aware of this as well. Per okay to give ativan at this time. Security aware. No further actions at this time.
[2020-10-30 10:51] LABS: Troponin-I High Sensitivity 39.3 ng/L (<3.5-35.0)
[2020-10-30 11:43] VITALS: BP 114/80; PULSE 113; RESP 16; O2SAT 99
[2020-10-30 12:02] LABS: Glucose Urine UA NEG (NEG); Leukocyte Esterase Urine NEG (NEG); Nitrite Urine NEG (NEG); Specific Gravity - Urine 1.015 (1.005-1.025); Urine Blood NEG (NEG); Urine Ketones 5 MG/DL (NEG); Urine Protein NEG (NEG-TRACE)
[2020-10-30 12:03] LABS: Appearance Urine CLEAR; Color Urine YELLOW
[2020-10-30] MEDS: LORazepam 1 MG TABLET 2 MG PO ×2 (12:15→14:44)
[2020-10-30 13:38] LABS: Amphetamine Screen Urine Not Detected (Not Detect); Barbiturates, Urine Not Detected (Not Detect); Benzodiazepines Screen Urine Not Detected (Not Detect); Cannabinoid Screen Urine Not Detected (Not Detect); Cocaine Screen Urine Not Detected (Not Detect); Opiate Screen Urine Not Detected (Not Detect); Phencyclidine Screen Urine Not Detected (Not Detect)
--- NOTE | 2020-10-30 14:37 | PC.NURSE ---
sleeping in RP room, nad, skin wpd, easily woken, no complaints
[2020-10-30 14:40] VITALS: BP 135/85; PULSE 117; RESP 18; O2SAT 98
--- NOTE | 2020-10-30 14:41 | PC.NURSE ---
alert, reports feeling shaky from withdrawl, will give ativan prn, drinking fluids and eating pudding
--- NOTE | 2020-10-30 15:15 | PC.NURSE ---
Pt given po ativan and VS obtained. Plan for DC. Resources for detox provided.
== END 2020-10-30 15:30 | disposition home or self-care (01) ==
PROVIDERS: Emergency Provider Emergency Medicine Emergency Medical Services
DX: R07.89 Other chest pain (principal); F10.20 Alcohol dependence, uncomplicated; Y90.8 Blood alcohol level of 240 mg/100 ml or more; F17.210 Nicotine dependence, cigarettes, uncomplicated; I10 Essential (primary) hypertension; F12.90 Cannabis use, unspecified, uncomplicated; Z91.14 Patient's other noncompliance with medication regimen; Z79.899 Other long term (current) drug therapy
CPT/HCPCS: 36415; 71045; 80048; 80307; 81003; 82077; 84484; 85025; 93005; 96374; 99284; 99285; J2060